=== PATIENT | female | born 1945 | race Caucasian/White ===

== ENCOUNTER → 2020-01-05 | Outpatient (CLI) | payer MEDICARE, OTHER ==
[~2020-01-05] MED LIST: Advil200 M1 PO
== END ==
LOC: LAB SHORT 08:47 → LAB EV 08:47
DX: R53.83 Other fatigue (principal); Z20.828 Contact with and (suspected) exposure to other viral communicable diseases
CPT/HCPCS: U0003

== ENCOUNTER → 2020-01-26 | Outpatient (CLI) | payer MEDICARE | LOC: LAB EV 11:26 → LAB SHORT 11:26 | DX: J06.9 Acute upper respiratory infection, unspecified (principal); Z20.828 Contact with and (suspected) exposure to other viral communicable diseases | CPT/HCPCS: U0003 ==

== ENCOUNTER → 2021-06-20 | Outpatient (CLI) | payer MEDICARE ==
[2021-06-20 11:53] LABS: Thyroid Stimulating Hormone 1.091 uIU/mL (0.360-4.800)
[2021-06-20 11:59] LABS: Troponin I <0.017 ng/mL (0.000-0.040)
== END | disposition home or self-care (01) ==
LOC: LAB SHORT 11:26
PROVIDERS: Physician Assistant Medical
DX: R53.83 Other fatigue (principal); R06.09 Other forms of dyspnea
CPT/HCPCS: 84443; 84484

== ENCOUNTER → 2022-02-28 | Outpatient (CLI) | payer MEDICARE ==
[~2022-02-28] MED LIST changes: +Aspir 8181 MG PO; +LISI5 PO; +METO25ER PO; +ROSU5 PO
== END | disposition home or self-care (01) ==
LOC: LAB 11:13 → LAB SHORT 11:13
DX: C44.519 Basal cell carcinoma of skin of other part of trunk (principal)
CPT/HCPCS: 88305

== ENCOUNTER → 2022-04-02 | Outpatient (CLI) | payer MEDICARE | END | disposition home or self-care (01) | LOC: PLD 12:29 → LAB SHORT 12:29 | DX: C44.519 Basal cell carcinoma of skin of other part of trunk (principal) | CPT/HCPCS: 88305 ==

== ENCOUNTER → 2022-07-03 | Outpatient (CLI) | payer MEDICARE | LOC: LAB SHORT 21:15 → LAB 21:15 | PROVIDERS: Family Medicine | DX: K52.9 Noninfective gastroenteritis and colitis, unspecified (principal) | CPT/HCPCS: 82653; 83993 ==

== ENCOUNTER → 2022-07-04 | Outpatient (CLI) | payer MEDICARE | LOC: LAB 05:05 → LAB SHORT 05:05 | DX: K52.9 Noninfective gastroenteritis and colitis, unspecified (principal) | CPT/HCPCS: 87015; 87045; 87046; 87205; 87899 ==

== ENCOUNTER 2022-11-02 05:49 | Emergency (ER) | payer MEDICARE ==
[~2022-11-02] VITALS: Ht 154.9 cm; Wt 43.1 kg
[2022-11-02] MEDS ORDERED: DILT120 PO (06:09)
[2022-11-02] MEDS ORDERED: PROBIOTIC (06:10)
[2022-11-02] MEDS ORDERED: GABA300 PO (06:10)
[2022-11-02 06:32] LABS: BASOPHILS ABSOLUTE AUTO 0.05 K/mm3 (0.00-0.23); BASOPHILS PERCENT AUTO 1 % (0-2); EOSINOPHILS PERCENT AUTO 1 % (0-6); Hematocrit 36.7 % (33.0-51.0); Hemoglobin 11.2 g/dL (11.5-16.0); IMMATURE GRAN ABSOLUTE AUTO 0.02 K/mm3 (0.00-0.10); IMMATURE GRAN PERCENT AUTO 0 % (0-1); LYMPHOCYTES ABSOLUTE AUTO 2.32 K/mm3 (0.84-5.20); LYMPHOCYTES PERCENT AUTO 24 % (21-46); MONOCYTES ABSOLUTE AUTO 0.45 K/mm3 (0.16-1.47); MONOCYTES PERCENT AUTO 5 % (4-13); Mean Corpuscular HGB 23.3 pg (26.0-34.0); Mean Corpuscular HGB Conc 30.5 g/dL (31.5-36.5); Mean Corpuscular Volume 76 fL (80-100); NEUTROPHILS PERCENT AUTO 70 % (41-73); Platelet Count 369 K/mm3 (150-400); RDW Coefficient Variation 14.1 % (11.7-14.2); Red Blood Cell Count 4.81 M/mm3 (3.80-5.20); White Blood Cell Count 9.84 K/mm3 (4.00-11.30)
[2022-11-02 06:44] LABS: Albumin, Blood 3.2 g/dL (3.4-5.0); Albumin/Globulin Ratio 0.9 (0.8-1.8); Bilirubin, Total 0.2 mg/dL (0.1-1.0); Bun/Creatinine Ratio 25.3 (12.0-20.0); Calcium, Blood 8.2 mg/dL (8.5-10.1); Creatinine, Blood 0.67 mg/dL (0.40-1.00); Globulin, Blood 3.5 g/dL (2.2-4.0); Potassium, Blood 3.9 mmol/L (3.5-5.5); Total Protein, Blood 6.7 g/dL (6.4-8.2)
[2022-11-02 07:42] VITALS: BP 146/79
== END 2022-11-02 07:57 | disposition home or self-care (01) ==
LOC: ER 05:49
PROVIDERS: Emergency Medicine
DX: I48.91 Unspecified atrial fibrillation (principal); Z88.5 Allergy status to narcotic agent; Z88.8 Allergy status to other drugs, medicaments and biological substances; Z79.82 Long term (current) use of aspirin; Z79.899 Other long term (current) drug therapy
CPT/HCPCS: 71045; 73080; 73610; 80053; 84484; 85025; 93005; 93010; 96361; 96374; 99284-25; A9270; J7030

== ENCOUNTER 2022-12-26 05:40 | Inpatient (IN) | payer MEDICARE ==
[~2022-12-26] VITALS: Ht 162.6 cm; Wt 31.2 kg
[~2022-12-26 05:40] MED LIST changes: +ALUM-MAG HYDRO360 M1 PO; +Acetaminophen650 M1 PO; +COMPAZINE10 MG PO; +DILT120 PO; +GABA300 PO; +MESALAMINE PO; +OMEP20ER PO; +ONDA4ODT MM; +PROBIOTIC; +Prednisone20 MG PO
[2022-12-26 06:21] LABS: Hematocrit 32.1 % (33.0-51.0); Hemoglobin 9.9 g/dL (11.5-16.0); Mean Corpuscular HGB 25.1 pg (26.0-34.0); Mean Corpuscular HGB Conc 30.8 g/dL (31.5-36.5); Mean Corpuscular Volume 81 fL (80-100); Platelet Count 296 K/mm3 (150-400); RDW Coefficient Variation 23.7 % (11.7-14.2); RDW Standard Deviation 69.3 fL (35.1-46.3); Red Blood Cell Count 3.95 M/mm3 (3.80-5.20)
[2022-12-26 06:44] LABS: BAND PERCENT MAN 11 % (0-8); BASOPHILS PERCENT MAN 0 % (0-2); EOSINOPHILS PERCENT MAN 0 % (0-6); LYMPHOCYTES ABSOLUTE MAN 0.68 K/mm3 (0.84-5.20); LYMPHOCYTES PERCENT MAN 10 % (21-46); MONOCYTES PERCENT MAN 0 % (4-13); NEUTROPHILS ABSOLUTE MAN 6.12 K/mm3 (1.96-9.15); SEG NEUTROPHILS PERCENT MAN 79 % (41-73); TOTAL CELLS COUNTED 100
[2022-12-26 06:46] LABS: Albumin, Blood 1.5 g/dL (3.4-5.0); Albumin/Globulin Ratio 0.4 (0.8-1.8); Bilirubin, Total 0.5 mg/dL (0.1-1.0); Bun/Creatinine Ratio 65.7 (12.0-20.0); Calcium, Blood 7.9 mg/dL (8.5-10.1); Creatinine, Blood 0.35 mg/dL (0.40-1.00); Globulin, Blood 3.7 g/dL (2.2-4.0); Magnesium, Blood 2.1 mg/dL (1.6-2.4); Potassium, Blood 4.7 mmol/L (3.5-5.5); Total Protein, Blood 5.2 g/dL (6.4-8.2)
[2022-12-26 08:41] LABS: Source, Urine Clean Catch
[2022-12-26 08:54] LABS: Appearance, Urine Clear (Clear); Bilirubin, Urine Neg (Neg); Blood, Urine Neg (Neg); Color, Urine Yellow (P-Yellow); Glucose Qualitative, Urine Neg (Neg); Ketones, Urine 2+ (Neg); Leukocyte Esterase, Urine Neg (Neg); Nitrite, Urine Neg (Neg); Protein, Urine Neg (Neg); Urobilinogen, Urine NORM (Normal)
[2022-12-26] MEDS ORDERED: ROSU5 PO (09:13)
[2022-12-26] MEDS ORDERED: BUDESONIDE EC3 M1 PO (09:14)
[2022-12-26] MEDS ORDERED: PROBIOTIC1 EA13 PO (09:14)
[2022-12-26] MEDS ORDERED: GABA300 PO (09:14)
[2022-12-26] MEDS ORDERED: Aspir 8181 MG PO (09:14)
[2022-12-26 10:00] VITALS: BP 112/62
[2022-12-26] MEDS ORDERED: PRED20 PO (10:18)
--- NOTE | 2022-12-26 11:15 | NUR ---
Call to Dr. Chong, updated on the pt's heart rate fluctuations, presently at sinus rhuthm 77 bpm. Pt is sitting up in bed, and has no complaints nor distress/discmfort at this time.
[2022-12-26 16:01] VITALS: BP 138/67
--- NOTE | 2022-12-26 16:48 | NUR ---
Pt assisted up to Bedside commode. Heart rate noted 130-141 bpm during the activity; per telecommunications technician it was not atrial fibrillation. Resolved to sinus rhythm 80 bpm following activity when back to bed. Voided urine and had liquid small red BM; sent for GI panel per orders. Pt is weak, requires at least one person to stand and transfer, but is able to stand and bear weight. Asking for chicken broth and is also drinking water, tolerating it well. Clinimix and iron infusions ongoing, separate IV sites.
--- NOTE | 2022-12-26 17:47 | NUR ---
pt is sitting up eating dinner; states that the beef stew is very good. Ferrous IV infusion completed. CBG 134 after start of Clinimix earlier this afternoon. IV sites remain WNL.
--- NOTE | 2022-12-26 18:47 | NUR ---
1 PERSON MODERATE ASSISTANCE UP TO bedside commode. Passed watery red stool and some urine. Unable to distinguish as they are both thin liquid. Continues to have tachycardia, asymptomatic, while up to toilet. States that she ate dinner but then threw it all up afterwards.
[2022-12-26 19:03] LABS: Adenovirus F 40/41 Not Detected (NOT DETECT); Astrovirus Not Detected (NOT DETECT); Campylobacter Sp Not Detected (NOT DETECT); Cryptosporidium Not Detected (NOT DETECT); Cyclospora Cayetanensis Not Detected (NOT DETECT); E. Coli O157 Not Detected (NOT DETECT); Entamoeba Histolytica Not Detected (NOT DETECT); Enteroaggregative E. coli-EAEC Not Detected (NOT DETECT); Enteropathogenic E. coli-EPEC Not Detected (NOT DETECT); Enterotoxigenic E. coli-ETEC Not Detected (NOT DETECT); Giardia Lamblia Not Detected (NOT DETECT); Norovirus GI/GII Not Detected (NOT DETECT); Plesiomonas Shigelloides Not Detected (NOT DETECT); Rotavirus A Not Detected (NOT DETECT); Salmonella Sp Not Detected (NOT DETECT); Sapovirus Not Detected (NOT DETECT); Shiga Toxin-prod E. coli-STEC Not Detected (NOT DETECT); Shigella/Enteroin E. coli-EIEC Not Detected (NOT DETECT); Vibrio Cholerae Not Detected (NOT DETECT); Vibrio Sp Not Detected (NOT DETECT); Yersinia Enterocolitica Not Detected (NOT DETECT)
[2022-12-26 19:53] VITALS: BP 137/77
[2022-12-27 00:07] VITALS: BP 130/70
[2022-12-27 04:12] VITALS: BP 149/77
[2022-12-27 04:47] LABS: Anion Gap 5 mmol/L (6-16); Blood Urea Nitrogen 21 mg/dL (8-24); Bun/Creatinine Ratio 68.4 (12.0-20.0); CO2, Blood 27 mmol/L (21-32); Calcium, Blood 7.4 mg/dL (8.5-10.1); Chloride, Blood 112 mmol/L (98-108); Creatinine, Blood 0.31 mg/dL (0.40-1.00); Glomerular Filtration Rate 107 (60-); Glucose, Blood 190 mg/dL (70-99); Magnesium, Blood 1.8 mg/dL (1.6-2.4); Phosphorus, Blood 1.8 mg/dL (2.5-4.9); Potassium, Blood 3.1 mmol/L (3.5-5.5); Sodium, Blood 144 mmol/L (136-145); Triglycerides 96 mg/dL (30-160)
--- NOTE | 2022-12-27 05:47 | NUR ---
SHIFT SUMMARY NO ACUTE CHANGES THIS SHIFT. VSS. AXO, PT WEAK. IN SR. ON RA. MULTIPLE LIQUID BM'S THIS SHIFT; RUST COLORED AT TIMES. CLINIMIX AND MAINTENANCE FLUIDS INFUSING PER EMAR. CBG STABLE. OTHERWISE, PT RESTING THIS SHIFT. USING CALL LIGHT APPROPRIATELY. BED ALARM ON. MINIMAL ASSIST TO BSC. IGNITION ASSESMENT COMPLETED. EDUCATION PROVIDED.
[2022-12-27 07:42] VITALS: BP 140/67
[2022-12-27 15:34] LABS: Albumin, Blood 1.2 g/dL (3.4-5.0); Anion Gap 5 mmol/L (6-16); Blood Urea Nitrogen 16 mg/dL (8-24); CO2, Blood 26 mmol/L (21-32); Calcium, Blood 7.2 mg/dL (8.5-10.1); Chloride, Blood 105 mmol/L (98-108); Creatinine, Blood 0.28 mg/dL (0.40-1.00); Glomerular Filtration Rate 110 (60-); Glucose, Blood 174 mg/dL (70-99); Potassium, Blood 3.8 mmol/L (3.5-5.5); Sodium, Blood 136 mmol/L (136-145)
[2022-12-27 16:36] VITALS: BP 131/71
--- NOTE | 2022-12-27 18:11 | NUR ---
Pt says that she has not had a very good afternoon. She ate very little of her full liquid dinner. States that she has a headache, gas on her stomach, and is just tired of trying right now. States that she just needs some time to stop trying for now. She does not elaborate further than that. Wants just to lie down in the room with her eyes closed, and lights off.
--- NOTE | 2022-12-27 18:15 | NUR ---
SUMMARY Pt said this morning that she had been awake "basically since 3 am". Overall appeared exhausted and extremely poor appetite. Had nausea and small amount of dry heaves after breakfast, relieved with zofran. Ongoing catalino colored liquid diarrhea throughout the day, small amounts mixed with urine in BSC. Sat up in chair for breakfast, but in bed the rest of the day except for when she got up to use the BSC. Able to stand, use the walker and transfer to BSC with verbal cues and just very minimal assistance. STates that she "can't do it" but with encouragement she has been able to. Heart rate controlled, sinus rhythm, with activity and at rest. Micah was here several times during the day.
[2022-12-27 19:38] VITALS: BP 155/68
[2022-12-27 22:49] VITALS: BP 143/79
[2022-12-28] VITALS (8 sets, daily range): BP systolic 125–163; BP diastolic 65–79
[2022-12-28 04:58] LABS: Hematocrit 24.1 % (33.0-51.0); Hemoglobin 7.8 g/dL (11.5-16.0); Mean Corpuscular HGB 25.2 pg (26.0-34.0); Mean Corpuscular HGB Conc 32.4 g/dL (31.5-36.5); Mean Corpuscular Volume 78 fL (80-100); Mean Platelet Volume 9.8 fL (9.1-12.4); Platelet Count 165 K/mm3 (150-400); RDW Coefficient Variation 22.6 % (11.7-14.2); White Blood Cell Count 4.43 K/mm3 (4.00-11.30)
--- NOTE | 2022-12-28 05:12 | NUR ---
SHIFT SUMMARY NO ACUTE CHANGES THIS SHIFT. AXO, PT STATING NEWFOUND DEPRESSION WITH DENIAL OF SI. PT IS A RISK FOR FAILURE TO THRIVE, EDUCATION PROVIDED WELL COMFORTING WORDS. PT CONTINUES WITH RUST COLORED DIARRHEA. CLINIMIX AND FLUIDS INFUSING PER EMAR. PT UP TO BSC MULTIPLE TIMES THIS SHIFT W/OUT INCIDENT. OTHERWISE, PT RESTING QUIETELY.
[2022-12-28 05:18] LABS: Bun/Creatinine Ratio 44.4 (12.0-20.0); Calcium, Blood 7.3 mg/dL (8.5-10.1); Creatinine, Blood 0.25 mg/dL (0.40-1.00); Magnesium, Blood 1.9 mg/dL (1.6-2.4); Phosphorus, Blood 1.9 mg/dL (2.5-4.9); Potassium, Blood 3.3 mmol/L (3.5-5.5)
[2022-12-28 06:18] LABS: BAND PERCENT MAN 3 % (0-8); BASOPHILS PERCENT MAN 0 % (0-2); EOSINOPHILS PERCENT MAN 0 % (0-6); LYMPHOCYTES ABSOLUTE MAN 0.39 K/mm3 (0.84-5.20); LYMPHOCYTES PERCENT MAN 9 % (21-46); MONOCYTES ABSOLUTE MAN 0.17 K/mm3 (0.16-1.47); MONOCYTES PERCENT MAN 4 % (4-13); NEUTROPHILS ABSOLUTE MAN 3.85 K/mm3 (1.96-9.15); SEG NEUTROPHILS PERCENT MAN 84 % (41-73); TOTAL CELLS COUNTED 100
--- NOTE | 2022-12-28 17:35 | NUR ---
AT 1600 PT HAD 300ML OF RED LIQUID STOOL MIXED WITH URINE. STOOL COLOR APPEARS LESS JOE LIKE IT DID THIS MORNING AND MUCH MORE RED. STOOL IS ALSO VERY SMELLY. PT CONTINUES TO GET TO THE COMMODE WITH 1 ASSIST, HAS DENIED DIZZINESS, VSS. DR. SCHWARZ MADE AWARE OF THIS. SEE NEW ORDER TO TRANSFUSE 1 UNIT OF PRBC'S.
--- NOTE | 2022-12-28 17:39 | NUR ---
SUMMARY: PT IS A/O, VSS, TELE STABLE-SR, ST WITH ACTIVITY, USING CALL LIGHT, AT BEDSIDE. PT UP TO COMMODE WITH 1 ASSIST AND FWW, WEAKNESS NOTED. SHE CONTINUES TO HAVE RED LIQ STOOLS, VOIDING WELL. POWER PICC PLACED TODAY, TPN NOW INFUSING. POSTASSIUM REPLACED. MAGNESIUM STABLE. 1 UNIT PRBC'S INFUSING NOW. PT SEEMS TO BE IN BETTER SPIRITS, EVEN WITH SHOWING SOME EXHAUSTION SHE STILL AGREED TO WORK WITH THERAPY. PT TOLERATING SMALL AMTS OF FULL LIQUIDS. NO ACUTE SAFETY CONCERNS.
[2022-12-29] VITALS: BP 136/69
[2022-12-29 02:30] LABS: Hematocrit 28.3 % (33.0-51.0); Hemoglobin 9.5 g/dL (11.5-16.0); Mean Corpuscular HGB 25.4 pg (26.0-34.0); Mean Corpuscular HGB Conc 33.6 g/dL (31.5-36.5); Mean Corpuscular Volume 76 fL (80-100); Mean Platelet Volume 10.5 fL (9.1-12.4); Platelet Count 146 K/mm3 (150-400); RDW Coefficient Variation 21.5 % (11.7-14.2); RDW Standard Deviation 58.5 fL (35.1-46.3); Red Blood Cell Count 3.74 M/mm3 (3.80-5.20); White Blood Cell Count 4.68 K/mm3 (4.00-11.30)
[2022-12-29 02:42] LABS: Albumin, Blood 1.3 g/dL (3.4-5.0); Albumin/Globulin Ratio 0.4 (0.8-1.8); Bilirubin, Total 0.6 mg/dL (0.1-1.0); Bun/Creatinine Ratio 48.7 (12.0-20.0); Calcium, Blood 7.4 mg/dL (8.5-10.1); Creatinine, Blood 0.23 mg/dL (0.40-1.00); Globulin, Blood 2.9 g/dL (2.2-4.0); Magnesium, Blood 1.7 mg/dL (1.6-2.4); Phosphorus, Blood 1.6 mg/dL (2.5-4.9); Potassium, Blood 3.4 mmol/L (3.5-5.5); Total Protein, Blood 4.2 g/dL (6.4-8.2)
[2022-12-29 03:00] LABS: BAND PERCENT MAN 18 % (0-8); BASOPHILS PERCENT MAN 0 % (0-2); EOSINOPHILS PERCENT MAN 0 % (0-6); LYMPHOCYTES ABSOLUTE MAN 0.18 K/mm3 (0.84-5.20); LYMPHOCYTES PERCENT MAN 4 % (21-46); MONOCYTES ABSOLUTE MAN 0.09 K/mm3 (0.16-1.47); MONOCYTES PERCENT MAN 2 % (4-13); NEUTROPHILS ABSOLUTE MAN 4.39 K/mm3 (1.96-9.15); SEG NEUTROPHILS PERCENT MAN 76 % (41-73); TOTAL CELLS COUNTED 100
[2022-12-29 04:00] VITALS: BP 135/78
--- NOTE | 2022-12-29 06:19 | NUR ---
SHIFT SUMMARY PT A&OX4. APPEARS PALE, FATIGUE AND WEAK, PT REPORTS FEELING "WEAK AND HAVING NO ENERGY." PT RECEIVING 1 UNIT OF PRBC'S AT SHIFT CHANGE, TRANSFUSION COMPLETE DURING THIS SHIFT. VSS THROUGHOUT SHIFT; BP IN 130'S, SR WITH HR IN 90'S, AFEBRILE, AND REMAINS ON RA W/SPO2 >96%. PT DENIES CP OR PRESSURE. DENIES N/V THIS SHIFT. REPORTS DIZZY AND SOB W/MINIMAL MOVEMENT. PT USING BSC WITH ASSISTANCE. TOLERATES FAIRLY, ALTHOUGH TIRED AFTER AND PT UNABLE TO LIFE HER OWN LEGS BACK INTO BED. PT IS VERY WEAK. PT VOIDING FREQUENTLY. PT STILL CONTINUES TO HAVE VERY LOOSE, LIQUID RED/BLOODY STOOLS. DIFFICULT TO DECIPHER URINE, STOOL VS BLOOD OUTPUT D/T MIXED OUTPUT. AM HGB 9.5. PT REPOSITIONS SEMI-INDEPENDENTLY, BUT NEEDING ASSISTANCE AT TIMES D/T DECREASED STRENGTH. TPN INFUSING PER EMAR. CALL LIGHT IN REACH. OF NOTE, PT AFFECT FLAT AND SEMI-WITHDRAWN. WILL UPDATE ONCOMING RN
[2022-12-29 07:59] VITALS: BP 116/82
--- NOTE | 2022-12-29 10:57 | NUR ---
AM NOTES: PT HAS FREQUENT LOOSE BLOODY/RED STOOLS PT HAS GONE 4 TIMES ALREADY THIS MORNING ONLY SMALL AMOUNTS AT EACH TIME. PT ABDOMEN IS TENDER TO TOUCH. PT C/O OF FEELING VERY WEAK BUT IS ABLE TO GET UP SBA TO BEDSIDE COMMODE TOLERATED. VITALS HRR ST 100'S, SBP 116, SATS ABOVE 95% ON RA, AFEBRILE. CPN RUNNING AT 50MLS/HR VIA PICC LINE ON ISAI, ABO AND IRON INFUSED THIS MORNING, KPHOS 15MMOL CURRENTLY INFUSING ON LAC. PT REMAINS ON FULL LIQUID DIET TOLERATING WELL. AT THE BEDSIDE THIS MORNING ASSISTING WITH PT'S BREAKFAST. PT ABLE TO WORK WITH PHYSICAL THERAPIST THIS MORNING. DR SCHWARZ IN THE ROOM OF THIS TIME. PT TO TRANSITION TO MEDICAL STATUS WITH NO TELE. WILL CONTINUE TO MONITOR
[2022-12-29 11:17] VITALS: BP 148/75
--- NOTE | 2022-12-29 14:29 | NUR ---
ASSUMPTION OF CARE NOTE THIS NURSE ASSUMED CARE AT APPROX. 1415 WHEN PT ARRIVED BACK FROM CT SCAN. SHE IS ALERT AND ORIENTED X 4, SHE WAS A 1 PERSON SBA TO BEDSIDE COMMODE AND APPEARED WEAK. TPN AND KPHOS RESTARTED PER EMAR ORDERS. WARM BLANKET PROVIDED AND PT IS NOW BACK IN BED. CALL LIGHT IS W/IN REACH.
[2022-12-29 15:46] VITALS: BP 147/83
--- NOTE | 2022-12-29 17:27 | NUR ---
SHIFT SUMMARY PT ALERT AND ORIENTED X 4, SHE APPEARS WEAK AND IS A 1 PERSON ASSIST TO BEDSIDE COMMODE, VSS, SPO2 MAINTAINED >95% VIA RA, SHE DENIED FEELING SOB, SHE DENIED FEELINGS OF CHEST PAIN/PRESSURE. PAIN REPORTED IN ABD BUT PT REPORTED ABD PAIN RELIEF AFTER VOIDING. GI OUTPUT IS RED IN COLOR, PT HAS HX OF ULCERATIVE COLLITIS. CPN INFUSING IN PICC LINE PER EMAR ORDERS. MEPILEX OVER COCCYX IS IN PLACE AND IS D/C/I. REPORT GIVEN TO ANGEL POE ON MEDICAL FLOOR AND PT LEFT PCU AT APPROX. 1712 TO MED FLOOR ROOM 358, HER WAS AT BEDSIDE AND ALL OF HER PERSONAL BELONINGS WENT WITH PT.
--- NOTE | 2022-12-29 17:35 | NUR ---
PATIENT ARRIVED TO MEDICAL FLOOR AND THIS RN ASSUMED CARE AT 1715. ACCOMPANIED BY , GARRETT. ROOM TRAY DELIVERED AND EATING FULL-LIQUID DIET. TPN RUNNING.
[2022-12-29 20:08] VITALS: BP 124/76
[2022-12-30 02:52] VITALS: BP 147/73
[2022-12-30 07:10] LABS: Hematocrit 28.6 % (33.0-51.0); Hemoglobin 9.6 g/dL (11.5-16.0); Mean Corpuscular HGB 25.9 pg (26.0-34.0); Mean Corpuscular HGB Conc 33.6 g/dL (31.5-36.5); Mean Corpuscular Volume 77 fL (80-100); Mean Platelet Volume 10.4 fL (9.1-12.4); Platelet Count 149 K/mm3 (150-400); RDW Coefficient Variation 21.7 % (11.7-14.2); RDW Standard Deviation 59.6 fL (35.1-46.3); Red Blood Cell Count 3.71 M/mm3 (3.80-5.20); White Blood Cell Count 5.74 K/mm3 (4.00-11.30)
--- NOTE | 2022-12-30 07:21 | NUR ---
SHFT URIZY, PT RESTING IN BED, PT HAVING TO USE BSC FREQUENTLY. PT SLEEPING INTERMITANTLY. CALL LIGHT IN REACH, FIRE SAFETY REVIEWED.
[2022-12-30 07:24] LABS: Albumin, Blood 1.3 g/dL (3.4-5.0); Albumin/Globulin Ratio 0.4 (0.8-1.8); Bilirubin, Total 0.3 mg/dL (0.1-1.0); Bun/Creatinine Ratio 57.9 (12.0-20.0); C-REACTIVE PROTEIN, EXT RANGE 6.08 mg/dL (0.000-0.300); Calcium, Blood 7.4 mg/dL (8.5-10.1); Creatinine, Blood 0.24 mg/dL (0.40-1.00); Magnesium, Blood 1.8 mg/dL (1.6-2.4); Phosphorus, Blood 1.7 mg/dL (2.5-4.9); Potassium, Blood 4.2 mmol/L (3.5-5.5); Total Protein, Blood 4.3 g/dL (6.4-8.2)
[2022-12-30 07:44] LABS: BAND PERCENT MAN 29 % (0-8); BASOPHILS ABSOLUTE MAN 0.05 K/mm3 (0.00-0.23); BASOPHILS PERCENT MAN 1 % (0-2); EOSINOPHILS PERCENT MAN 0 % (0-6); LYMPHOCYTES ABSOLUTE MAN 0.51 K/mm3 (0.84-5.20); LYMPHOCYTES PERCENT MAN 9 % (21-46); MONOCYTES ABSOLUTE MAN 0.22 K/mm3 (0.16-1.47); MONOCYTES PERCENT MAN 4 % (4-13); NEUTROPHILS ABSOLUTE MAN 4.93 K/mm3 (1.96-9.15); SEG NEUTROPHILS PERCENT MAN 57 % (41-73); TOTAL CELLS COUNTED 100
[2022-12-30 07:55] VITALS: BP 133/68
[2022-12-30 15:52] VITALS: BP 127/69
--- NOTE | 2022-12-30 16:21 | NUR ---
SHIFT SUMMARY: NO ACUTE EVENTS, IS VERY TIRED. TPN INFUSING THROUGH ISAI PICC LINE WITHOUT INCIDENT. BLADDER SCAN AND STRAIGHT CATH PERFORMED X 2 AT TIME OF THIS NOTE. TEDS HOSE ON, 2+ EDEMA BILATERAL FEET AND ANKLES. TOLERATING FULL LIQ DIET, BUT APPETITE IS VERY POOR. HAVING FREQUENT BLOODY BM'S, BUT BLOOD IS LESS FREQUENT. SPOUSE GARRETT VISITED THIS MORNING.
[2022-12-30 19:15] VITALS: BP 113/65
[2022-12-31 02:05] VITALS: BP 150/80
[2022-12-31 03:48] VITALS: BP 145/71
--- NOTE | 2022-12-31 04:31 | NUR ---
SHIFT SUMMARY PT IS ALERT AND ORIENTED X4. BECAME TEARFUL AND REPORTING CHEST PAIN. DR. JACOBO NOTIFIED. EKG ORDERED. NOTHING SIGNIFICANT. PT HAS INCREASED SECRETIONS WHEN SWALLOWING MEDICAITONS SHE ALSO REPORTS PAIN AFTER SWALLOWING. BLOOD STREAKED LOOSE STOOL. ONE PERSON ASSIST TO THE BEDSIDE COMMODE. BED IS IN THE LOWEST POSITION WITH CALL LIGHT IN REACH. PT DENIES HAVING ANY IGNITION SOURCES ON HER. EDUCATION PROVIDED ON THE RISKS OF HAVING SOURCES AROUND OXYGEN. PT VERBALIZES UNDERSTANDING.
[2022-12-31 07:37] VITALS: BP 129/68
--- NOTE | 2022-12-31 08:00 | NUR ---
PT PLEASANT WEAK, CACHECTIC. A/O X3. DENIES PAIN AT THIS TIME. H/R REG, NO MURMUR NOTED. EDEMA +1 BLE. ON PILLOWS. NO TELE. LUNGS CLEAR, RESP EASY, UNLABORED. ON R/A. BT X4 LAST BM TODAY. LOOSE SOME BLOOD. DX OF ULCERATIVE COLITIS. VOIDS BSC. BUT VERY LITTLE. BLADDER SCAN AND IF >400 CC, TO STRAIGHT CATH PER ORDERS. ON TPN THRU PICC LINE. ISAI. 1 ASST TO BSC. BED IN LOW POSITION, CALL LITE IN REACH, CALLS APPROP
[2022-12-31 08:06] LABS: Hematocrit 27.2 % (33.0-51.0); Mean Corpuscular HGB 25.7 pg (26.0-34.0); Mean Corpuscular HGB Conc 33.1 g/dL (31.5-36.5); Mean Corpuscular Volume 78 fL (80-100); Mean Platelet Volume 10.8 fL (9.1-12.4); Platelet Count 149 K/mm3 (150-400); RDW Coefficient Variation 22.2 % (11.7-14.2); RDW Standard Deviation 60.2 fL (35.1-46.3); White Blood Cell Count 4.91 K/mm3 (4.00-11.30)
[2022-12-31 08:29] LABS: BAND PERCENT MAN 18 % (0-8); BASOPHILS PERCENT MAN 0 % (0-2); EOSINOPHILS PERCENT MAN 0 % (0-6); LYMPHOCYTES ABSOLUTE MAN 0.29 K/mm3 (0.84-5.20); LYMPHOCYTES PERCENT MAN 6 % (21-46); MONOCYTES ABSOLUTE MAN 0.09 K/mm3 (0.16-1.47); MONOCYTES PERCENT MAN 2 % (4-13); MYELOCYTE ABSOLUTE MAN 0.04 K/mm3 (0.00-0.00); MYELOCYTE PERCENT MAN 1 % (0-0); NEUTROPHILS ABSOLUTE MAN 4.46 K/mm3 (1.96-9.15); SEG NEUTROPHILS PERCENT MAN 73 % (41-73); TOTAL CELLS COUNTED 100
[2022-12-31 08:30] LABS: Albumin, Blood 1.2 g/dL (3.4-5.0); Albumin/Globulin Ratio 0.4 (0.8-1.8); Bilirubin, Total 0.3 mg/dL (0.1-1.0); Bun/Creatinine Ratio 55.6 (12.0-20.0); Calcium, Blood 7.4 mg/dL (8.5-10.1); Creatinine, Blood 0.27 mg/dL (0.40-1.00); Globulin, Blood 2.9 g/dL (2.2-4.0); Phosphorus, Blood 1.8 mg/dL (2.5-4.9); Potassium, Blood 4.3 mmol/L (3.5-5.5); Total Protein, Blood 4.1 g/dL (6.4-8.2)
--- NOTE | 2022-12-31 12:01 | NUR ---
CAROLYN FROM [facility] CALLED, STATES DONT GIVE ANTIVO IF ON ANTIFUNGALS OR ABX FOR 1-2 WEEKS UNLESS HAVE SPECIAL APPROVAL FROM DR. NEED TO CALL DR KACIE HARRISON.. [phone]. CALLED KENDRA ESPINOSA RN STATES HE IN PROCEDURES. WILL ASK AND HAVE SOMEONE CALL ME WITH [facility].
--- NOTE | 2022-12-31 13:06 | NUR ---
KENDRA FROM [place], DR KACIE JACKSON OFFICE, CALLED. OKAY TO GIVE MED WITH THE ANTIBIOTICS AND METRONIDAZOLE.
[2022-12-31 15:19] VITALS: BP 128/67
--- NOTE | 2022-12-31 18:28 | NUR ---
PT C/O THROAT AND NECK PAIN. CALLED DR TAMAYO. ORDERS FOR MAGIC MOUTHWASH.
[2022-12-31 19:21] VITALS: BP 112/75
--- NOTE | 2022-12-31 19:48 | NUR ---
PT QUITE PLEASANT TODAY. NEW MED FOR COLITIS ORDERED FOR 8PM TONITE. UPDATED DANNI RN PER CAROLYN AT [facility] TO FLUSH WITH 30 CC NS AFTER INFUSION. PT C/O SORE THROAT TO NECK. OBTAINED ORDERS FOR MAGIC MOUTHWASH, NOT HERE PRIOR TO SHIFT CHANGE. DANNI POE TO GIVE. HUSB IN ROOM THIS AFT. NO OTHER CONCERNS NOTED. BED IN LOW POSITION CALL LITE IN REACH, CALLS APPROP
[2023-01-01 04:55] VITALS: BP 112/60
[2023-01-01 05:04] LABS: Hematocrit 25.2 % (33.0-51.0); Hemoglobin 8.2 g/dL (11.5-16.0); Mean Corpuscular HGB 25.6 pg (26.0-34.0); Mean Corpuscular HGB Conc 32.5 g/dL (31.5-36.5); Mean Corpuscular Volume 79 fL (80-100); Mean Platelet Volume 10.9 fL (9.1-12.4); Platelet Count 151 K/mm3 (150-400); RDW Coefficient Variation 22.1 % (11.7-14.2); RDW Standard Deviation 62.4 fL (35.1-46.3); White Blood Cell Count 4.08 K/mm3 (4.00-11.30)
[2023-01-01 05:29] LABS: Magnesium, Blood 1.8 mg/dL (1.6-2.4)
[2023-01-01 05:47] LABS: Alanine Aminotransfer (ALT/SGP 47 U/L (12-78); Albumin, Blood 1.1 g/dL (3.4-5.0); Albumin/Globulin Ratio 0.4 (0.8-1.8); Alk Phos 87 U/L (50-136); Anion Gap 4 mmol/L (6-16); Aspartate Aminotrans (AST/SGOT 22 U/L (12-37); Bilirubin, Direct <0.1 mg/dL (0.0-0.3); Bilirubin, Indirect Unable to Calculate mg/dL (0.1-0.7); Bilirubin, Total 0.2 mg/dL (0.1-1.0); Blood Urea Nitrogen 15 mg/dL (8-24); CO2, Blood 29 mmol/L (21-32); Calcium, Blood 7.2 mg/dL (8.5-10.1); Chloride, Blood 102 mmol/L (98-108); Creatinine, Blood 0.25 mg/dL (0.40-1.00); Globulin, Blood 2.8 g/dL (2.2-4.0); Glomerular Filtration Rate 113 (60-); Glucose, Blood 180 mg/dL (70-99); Phosphorus, Blood 2.3 mg/dL (2.5-4.9); Potassium, Blood 4.3 mmol/L (3.5-5.5); Sodium, Blood 135 mmol/L (136-145); Total Protein, Blood 3.9 g/dL (6.4-8.2)
[2023-01-01 05:49] LABS: BAND PERCENT MAN 33 % (0-8); BASOPHILS PERCENT MAN 0 % (0-2); EOSINOPHILS PERCENT MAN 0 % (0-6); LYMPHOCYTES ABSOLUTE MAN 0.24 K/mm3 (0.84-5.20); LYMPHOCYTES PERCENT MAN 6 % (21-46); METAMYELOCYTE ABSOLUTE MAN 0.04 K/mm3 (0.00-0.00); METAMYELOCYTE PERCENT MAN 1 % (0-0); MONOCYTES ABSOLUTE MAN 0.08 K/mm3 (0.16-1.47); MONOCYTES PERCENT MAN 2 % (4-13); NEUTROPHILS ABSOLUTE MAN 3.71 K/mm3 (1.96-9.15); SEG NEUTROPHILS PERCENT MAN 58 % (41-73); TOTAL CELLS COUNTED 100
[2023-01-01 07:27] VITALS: BP 130/66
--- NOTE | 2023-01-01 07:59 | NUR ---
Shift Summary Pt mouth and throat are very sore, magic mouthwash was D/C by day doctor before I could administer. Pt refused PO medication last night fearing another painful episode like the last time she swallowed. Pt rcvd new IV drug Entyvio last night, no adverse reactions. She is running TPN at 50. No c/o pain or nausea. She is a 1 assist to [facility] and does a pivot transfer. Pt had bloody diahrrea 4-6 times last night, Hgb this AM is 8.2 down from 9.0. Pt states she does get light headed when she stands up. Pt AOX4 and cooperative.
--- NOTE | 2023-01-01 08:00 | NUR ---
PT PLEASANT COOP A/O. QUITE QUIET AND WEAK. IS ON CPN. THROUGH PICC LINE RT UPPER ARM. C/O PAIN IN THROAT TO NECK. DISCUSSED WITH WE REINSTATED THE MAGIC MOUTHWASH. PT STATES DOES HELP. H/R REG, NO MURMUR NOTED. NO TELE. +1 EDEMA NOTED BLE, ON PILLOWS. LUNGS CLEAR, RESP EASY, UNLABORED ON RA. BT HYPO. LAST BM THIS AM. STILL LIGHTLY BLOODY STOOLS: COLITIS. H/H REVIEWED WITH DR. KOFI BROWN CATH. YELLOW FLUID DRAIINING. 1 MIN ASST. BED IN LOW POSITION, CALL LITE IN REACH, CALLS APPROP
--- NOTE | 2023-01-01 08:35 | NUR ---
SPOKE TO DR TAMAYO, NO REASON WHY MAGIC MOUTHWASH CANCELLED. RESTARTED.
[2023-01-01 15:44] VITALS: BP 127/74
--- NOTE | 2023-01-01 18:16 | NUR ---
PT PLEASANT TODAY. STATES MAGIC MOUTHWASH HELPED SOME. ABLE TO EAT 1/4 OF GRILLED CHEESE SANDWICH THIS NOON PLUS TRYING TO EAT SOME DINNER FROM HOME TODAY. FEELS MAYBE BLOODY STOOLS SLOWED A LITTLE TODAY. NO NEW CONCERNS NOTED. BEDIN LOW POSITION, CALL LITE IN REACH, CALLSD APPRP
[2023-01-01 20:12] VITALS: BP 136/60
[2023-01-02 04:19] VITALS: BP 146/68
[2023-01-02 05:19] LABS: Bun/Creatinine Ratio 65.2 (12.0-20.0); Calcium, Blood 7.1 mg/dL (8.5-10.1); Creatinine, Blood 0.28 mg/dL (0.40-1.00); Magnesium, Blood 1.9 mg/dL (1.6-2.4); Potassium, Blood 4.2 mmol/L (3.5-5.5)
[2023-01-02 07:25] VITALS: BP 147/73
--- NOTE | 2023-01-02 07:28 | NUR ---
Shift Summary Loose stools were less bloody than yesterday but still contain blood. She is running TPN at 50. Her Hgb on her AM lab is 6.9. She is AOx4, weak, 1 assist to BSC. She took her PO meds last night, her mouth is feeling better than the night before.
[2023-01-02 11:43] LABS: Hematocrit 29.3 % (33.0-51.0); Hemoglobin 9.3 g/dL (11.5-16.0); Mean Corpuscular HGB 25.6 pg (26.0-34.0); Mean Corpuscular HGB Conc 31.7 g/dL (31.5-36.5); Mean Corpuscular Volume 81 fL (80-100); Mean Platelet Volume 9.9 fL (9.1-12.4); Platelet Count 164 K/mm3 (150-400); RDW Coefficient Variation 22.3 % (11.7-14.2); RDW Standard Deviation 65.2 fL (35.1-46.3); Red Blood Cell Count 3.63 M/mm3 (3.80-5.20); White Blood Cell Count 5.22 K/mm3 (4.00-11.30)
[2023-01-02 12:33] LABS: BAND PERCENT MAN 22 % (0-8); BASOPHILS PERCENT MAN 0 % (0-2); EOSINOPHILS ABSOLUTE MAN 0.05 K/mm3 (0.00-0.68); EOSINOPHILS PERCENT MAN 1 % (0-6); LYMPHOCYTES ABSOLUTE MAN 0.05 K/mm3 (0.84-5.20); LYMPHOCYTES PERCENT MAN 1 % (21-46); METAMYELOCYTE ABSOLUTE MAN 0.05 K/mm3 (0.00-0.00); METAMYELOCYTE PERCENT MAN 1 % (0-0); MONOCYTES ABSOLUTE MAN 0.31 K/mm3 (0.16-1.47); MONOCYTES PERCENT MAN 6 % (4-13); NEUTROPHILS ABSOLUTE MAN 4.75 K/mm3 (1.96-9.15); SEG NEUTROPHILS PERCENT MAN 69 % (41-73); TOTAL CELLS COUNTED 100
--- NOTE | 2023-01-02 12:42 | NUR ---
Attempted to meet with pt, but she had just finished a shower and wants to have a little nap. She was very pleasant, will return later today.
[2023-01-02 15:41] VITALS: BP 124/65
--- NOTE | 2023-01-02 18:04 | NUR ---
SHIFT SUMMARY: NO ACUTE EVENTS. 1+ PEDAL EDEMA NOTED. DRESSING AND CAP CHANGED ON ISAI PICC, FLUSHES AND DRAWS WELL. BROWN DRAINING ADEQUATE YELLOW URINE. DIET ADVANCED TO REGULAR, BUT APPETITE REMAINS VERY POOR AND MOUTH STILL PAINFUL. TPN INFUSING AT 50 ML/HR. WAS ABLE TO TAKE SHOWER WITH ASSISTANCE, WAS EXHAUSTED AFTERWARD. PT/OT WORKED WITH PATIENT. SPOUSE VISITED A FEW TIMES TODAY.
[2023-01-02 20:05] VITALS: BP 137/67
[2023-01-03 02:21] VITALS: BP 153/70
--- NOTE | 2023-01-03 04:47 | NUR ---
SHIFT SUMMARY NO ACUTE CHANGES TO PT CONDITION. PT REFUSED MAGIC MOUTHWASH AND REMERON LAST EVENING. PT LYING QUIETLY IN BED MUCH OF THE NIGHT. CALL LIGHT IS WITHIN HER REACH AND PT HAS UNDERSTANDING OF ITS USE.
[2023-01-03 07:30] VITALS: BP 145/74
[2023-01-03 09:26] LABS: Hematocrit 27.8 % (33.0-51.0); Mean Corpuscular HGB 25.9 pg (26.0-34.0); Mean Corpuscular HGB Conc 32.4 g/dL (31.5-36.5); Mean Corpuscular Volume 80 fL (80-100); Mean Platelet Volume 10.4 fL (9.1-12.4); Platelet Count 167 K/mm3 (150-400); RDW Coefficient Variation 22.7 % (11.7-14.2); RDW Standard Deviation 64.9 fL (35.1-46.3); Red Blood Cell Count 3.48 M/mm3 (3.80-5.20)
[2023-01-03 09:40] LABS: Anion Gap 5 mmol/L (6-16); Blood Urea Nitrogen 19 mg/dL (8-24); Bun/Creatinine Ratio 69.3 (12.0-20.0); CO2, Blood 29 mmol/L (21-32); Calcium, Blood 7.4 mg/dL (8.5-10.1); Chloride, Blood 100 mmol/L (98-108); Creatinine, Blood 0.27 mg/dL (0.40-1.00); Glomerular Filtration Rate 111 (60-); Glucose, Blood 132 mg/dL (70-99); Phosphorus, Blood 1.9 mg/dL (2.5-4.9); Potassium, Blood 4.3 mmol/L (3.5-5.5); Sodium, Blood 134 mmol/L (136-145); Triglycerides 106 mg/dL (30-160)
[2023-01-03 09:57] LABS: BAND PERCENT MAN 22 % (0-8); BASOPHILS ABSOLUTE MAN 0.04 K/mm3 (0.00-0.23); BASOPHILS PERCENT MAN 1 % (0-2); EOSINOPHILS PERCENT MAN 0 % (0-6); LYMPHOCYTES % ATYPICAL MANUAL 4 % (0-0); LYMPHOCYTES ABSOLUTE MAN 0.57 K/mm3 (0.84-5.20); LYMPHOCYTES PERCENT MAN 8 % (21-46); MONOCYTES ABSOLUTE MAN 0.09 K/mm3 (0.16-1.47); MONOCYTES PERCENT MAN 2 % (4-13); NEUTROPHILS ABSOLUTE MAN 4.08 K/mm3 (1.96-9.15); SEG NEUTROPHILS PERCENT MAN 63 % (41-73); TOTAL CELLS COUNTED 100
--- NOTE | 2023-01-03 13:24 | NUR ---
Megace increased to 400mg daily. First dose now, then daily at [address] Conway.
[2023-01-03 15:06] VITALS: BP 128/61
--- NOTE | 2023-01-03 17:00 | NUR ---
SUMMARY PATIENT CONTINUES TO BE WEAK. PATIENT NOT INTERESTED IN WORKING WITH THERAPY TODAY. PATIENT ONLY EATING BITES OF FOOD. CPN INFUSION CONTINUED. PATIENT CONTINUES TO HAVE BOUTS OF LIQUID STOOL WITH FLECKS OF BLOOD IN IT. PATIENT STARTED ON APPETITE STIMULANT TO HELP IMPROVE APPETITE. PATIENT HAD TELEHEALTH APPOINTMENT WITH GI SPECIALIST TODAY. PATIENT TO FOLLOW UP WITH SPECIALIST IN 2 WEEKS IN PERSON. PATIENT CONTINUES TO HAVE SORES/DISCOMFORT IN HER MOUTH AND RELUCTANT ABOUT EATING. AT BEDSIDE OFF AND ON THROUGHOUT THE DAY.
--- NOTE | 2023-01-03 18:46 | NUR ---
SUMMARY PATIENT CONTINUES TO BE VERY WEAK. PATIENT CONTINUES TO HAVE POOR APPETITE. PATIENT UP FREQUENTLY PASSING SMALL AMOUNTS OF LIQUID STOOL WITH SOME BLOOD. CPN INFUSING THROUGH PICC LINE. PATIENT STARTED ON APPETITE STIMULANT TO ENCOURAGE APPETITE. PATIENT HAD TELEHEALTH VISIT WITH GI SPECIALIST AND WILL FOLLOW UP AN OUTPATIENT WITH A FACE TO FACE VISIT. JOSE MIGUEL STOCKINGS ON CATHETER IN PLACE AND DRAINING YELLOW URINE WITH SEDIMENT.
[2023-01-03 20:35] VITALS: BP 143/62
[2023-01-04 05:00] VITALS: BP 123/67
--- NOTE | 2023-01-04 05:02 | NUR ---
BLOOD DRAWN FROM PICC AND SENT TO LAB.
--- NOTE | 2023-01-04 05:02 | NUR ---
SHIFT SUMMARY NO ACUTE CHANGES TO PT STATUS. PT SLEEPING MUCH OF THE NIGHT. PT HAS CALL LIGHT WITHIN HER REACH. PT HAS NO COMPLAINTS AT THIS TIME.
[2023-01-04 05:33] LABS: Albumin, Blood 1.6 g/dL (3.4-5.0); Albumin/Globulin Ratio 0.6 (0.8-1.8); Bilirubin, Direct 0.1 mg/dL (0.0-0.3); Bilirubin, Indirect 0.2 mg/dL (0.1-0.7); Bilirubin, Total 0.3 mg/dL (0.1-1.0); Globulin, Blood 2.5 g/dL (2.2-4.0); Total Protein, Blood 4.1 g/dL (6.4-8.2)
[2023-01-04 07:57] VITALS: BP 141/71
--- NOTE | 2023-01-04 09:55 | NUR ---
"Spiritual Care Visit| Staff request Pt. is awake in bed and welcomes my visit. Pt. is pleasant and soft spoken. Facilitate a short life review and begin to focus on her hospitalization. Listen with empathy and a calming presence. Pt. displays evidence of trust and openess. Pastoral care is given and Pt. verbalizes her desire to get the energy to get through the infusions. Pt. welcomes prayer. Prayed with the Pt. and verbalizes gratitude for the spiritual care visit."
[2023-01-04 14:45] LABS: Albumin, Blood 1.6 g/dL (3.4-5.0); Albumin/Globulin Ratio 0.6 (0.8-1.8); Bilirubin, Total 0.3 mg/dL (0.1-1.0); Bun/Creatinine Ratio 71.1 (12.0-20.0); C-Reactive Protein, High Sens. 75.3 mg/L (0.000-3.000); Calcium, Blood 7.7 mg/dL (8.5-10.1); Creatinine, Blood 0.24 mg/dL (0.40-1.00); Globulin, Blood 2.8 g/dL (2.2-4.0); Phosphorus, Blood 1.9 mg/dL (2.5-4.9); Potassium, Blood 4.2 mmol/L (3.5-5.5); Total Protein, Blood 4.4 g/dL (6.4-8.2)
[2023-01-04 16:51] VITALS: BP 118/71
--- NOTE | 2023-01-04 18:30 | NUR ---
SHIFT SUMMARY PATIENT CONTINUES TO BE VERY WEAK. APPETITE POOR BUT IMPROVED WITH MEGACE. CONTINUES TO PASS MUCUS STOOL WITH PINK RED COLOR. SPECIMEN SENT TO LAB FOR FURTHER STUDIES. PATIENT HAS DRESSING OVER COCCYX AREA FOR EXCORIATED AREAS. PATIENT CONTINUES TO VERBALIZE ABOUT MOUTH SORES AND THROAT BEING RAW. NO SORES VISIBLE IN MOUTH. PATIENT CONTINUES TO USE SWISH AND SWALLOW AND MAJIC MOUTH WASH. PATIENT TO SEE GI SPECIALIST OUTPATIENT WHEN STABLE
[2023-01-04 20:45] VITALS: BP 140/70
[2023-01-05 02:09] VITALS: BP 117/66
--- NOTE | 2023-01-05 05:39 | NUR ---
PATIENT RESTED WELL THROUGH THE NIGHT, ORIENTED X4, CALLS TO MAKE NEEDS KNOWN. TPN INFUSING CONTINUOUSLY, NO PAIN REPORTED, VSS, 4 SMALL TO MEDIUM RED WATERY BM'S. 1X ASSIST TO BSC. MEHRDADN HAS A HARD TIME GETTING UP TPO THE SIT POSITION SHE IS VERY WEAK. NO OTHER ACUTE CHANGES TO REPORT.
[2023-01-05 06:11] LABS: BASOPHILS ABSOLUTE AUTO 0.02 K/mm3 (0.00-0.23); BASOPHILS PERCENT AUTO 0 % (0-2); Hematocrit 24.2 % (33.0-51.0); Hemoglobin 8.1 g/dL (11.5-16.0); LYMPHOCYTES ABSOLUTE AUTO 0.57 K/mm3 (0.84-5.20); LYMPHOCYTES PERCENT AUTO 11 % (21-46); MONOCYTES ABSOLUTE AUTO 0.13 K/mm3 (0.16-1.47); MONOCYTES PERCENT AUTO 3 % (4-13); Mean Corpuscular HGB 26.6 pg (26.0-34.0); Mean Corpuscular HGB Conc 33.5 g/dL (31.5-36.5); Mean Corpuscular Volume 79 fL (80-100); Mean Platelet Volume 10.6 fL (9.1-12.4); Platelet Count 143 K/mm3 (150-400); RDW Coefficient Variation 22.5 % (11.7-14.2); RDW Standard Deviation 64.3 fL (35.1-46.3); Red Blood Cell Count 3.05 M/mm3 (3.80-5.20); White Blood Cell Count 5.19 K/mm3 (4.00-11.30)
[2023-01-05 06:20] LABS: EOSINOPHILS PERCENT AUTO 0 % (0-6); IMMATURE GRAN ABSOLUTE AUTO 0.04 K/mm3 (0.00-0.10); IMMATURE GRAN PERCENT AUTO 1 % (0-1); NEUTROPHILS ABSOLUTE AUTO 4.43 K/mm3 (1.96-9.15); NEUTROPHILS PERCENT AUTO 85 % (41-73)
[2023-01-05 07:19] VITALS: BP 125/69
--- NOTE | 2023-01-05 13:36 | NUR ---
and R.N. left room and instantly at lunchtime the patient called for assist to commode. I answered immediately as iwas passing trays near. She was very upset and said shed been calling for an hour. I alerted her i was actually instantly responding. I then assisted her onto commode, changed out pad and fixed linens. She stated," I dont want to be done yet as it keeps coming." So I handed her call light and said id finish tray pass and be back. 8 minutes later i returned to check and she furiously told me shes been yelling for help for 25 minutes. Inna was witness that it is untrue and told her so. She is clean and back in bed. KS
[2023-01-05 14:44] LABS: Albumin, Blood 1.4 g/dL (3.4-5.0); Albumin/Globulin Ratio 0.5 (0.8-1.8); Bilirubin, Total 0.3 mg/dL (0.1-1.0); Bun/Creatinine Ratio 78.1 (12.0-20.0); Calcium, Blood 7.3 mg/dL (8.5-10.1); Creatinine, Blood 0.27 mg/dL (0.40-1.00); Globulin, Blood 2.7 g/dL (2.2-4.0); Potassium, Blood 4.5 mmol/L (3.5-5.5); Total Protein, Blood 4.1 g/dL (6.4-8.2)
[2023-01-05 17:03] VITALS: BP 111/61
--- NOTE | 2023-01-05 18:01 | NUR ---
SHIFT SUMMARY PT RESTING QUIETLY AWAKE AT START OF SHIFT, DURING SHIFT REPORT. PT RECEIVING TPN D/T WEAKNESS AND FTT. PT EATING ONLY SM AMT'S AT EACH MEAL. SWISH AND SWALLOW GIVEN PRIOR TO MEALS TO ASSIST PT WITH DIFFICULTY SWALLOWING. UP TO BSC, WITH 1P ASSIST, THRU OUT THE DAY FOR BLOODY BM'S; X4 THIS SHIFT. PT'S TO RM LATE MORNING AND HAS REMAINED TO PRESENT. THERAPY IN TO SEE PT DURING THE DAY. DR HERNANDEZ IN TO SEE PT THIS EVENING. NO NEW ORDERS TO PRESENT. PT TO D/C TO HOME WITH H/H WHEN MEDICALLY STABLE. DENIED FURTHER NEEDS. CALL LT IN REACH.
[2023-01-05 19:23] VITALS: BP 111/68
[2023-01-06 03:19] VITALS: BP 123/59
--- NOTE | 2023-01-06 03:38 | NUR ---
SHIFT SUMMERY,PT RESTING IN BED, PT HAS HAD MULTIPLE BMS WITH BLOOD TONIGHT. OINTMENT APPLYED TO RECTAL AREA AND DRG CHANBED X2. CALL LIGHT IN REACH . FIRE SAFETY REVIEW DONE.
[2023-01-06 04:35] LABS: Hematocrit 23.7 % (33.0-51.0); Hemoglobin 7.9 g/dL (11.5-16.0); Mean Corpuscular HGB 26.2 pg (26.0-34.0); Mean Corpuscular HGB Conc 33.3 g/dL (31.5-36.5); Mean Corpuscular Volume 79 fL (80-100); Mean Platelet Volume 9.7 fL (9.1-12.4); Platelet Count 128 K/mm3 (150-400); RDW Coefficient Variation 22.7 % (11.7-14.2); RDW Standard Deviation 65.6 fL (35.1-46.3); Red Blood Cell Count 3.01 M/mm3 (3.80-5.20); White Blood Cell Count 4.51 K/mm3 (4.00-11.30)
[2023-01-06 04:55] LABS: Albumin, Blood 1.4 g/dL (3.4-5.0); Albumin/Globulin Ratio 0.5 (0.8-1.8); Bilirubin, Total 0.3 mg/dL (0.1-1.0); Bun/Creatinine Ratio 83.9 (12.0-20.0); Calcium, Blood 7.3 mg/dL (8.5-10.1); Creatinine, Blood 0.27 mg/dL (0.40-1.00); Globulin, Blood 2.8 g/dL (2.2-4.0); Potassium, Blood 4.9 mmol/L (3.5-5.5); Total Protein, Blood 4.2 g/dL (6.4-8.2)
[2023-01-06 05:03] LABS: BAND PERCENT MAN 32 % (0-8); BASOPHILS PERCENT MAN 0 % (0-2); EOSINOPHILS PERCENT MAN 0 % (0-6); LYMPHOCYTES ABSOLUTE MAN 0.22 K/mm3 (0.84-5.20); LYMPHOCYTES PERCENT MAN 5 % (21-46); METAMYELOCYTE ABSOLUTE MAN 0.04 K/mm3 (0.00-0.00); METAMYELOCYTE PERCENT MAN 1 % (0-0); MONOCYTES ABSOLUTE MAN 0.04 K/mm3 (0.16-1.47); MONOCYTES PERCENT MAN 1 % (4-13); MYELOCYTE ABSOLUTE MAN 0.04 K/mm3 (0.00-0.00); MYELOCYTE PERCENT MAN 1 % (0-0); NEUTROPHILS ABSOLUTE MAN 4.14 K/mm3 (1.96-9.15); SEG NEUTROPHILS PERCENT MAN 60 % (41-73); TOTAL CELLS COUNTED 100
[2023-01-06 07:50] VITALS: BP 131/67
[2023-01-06 16:01] LABS: Hematocrit 24.7 % (33.0-51.0); Mean Corpuscular HGB Conc 32.4 g/dL (31.5-36.5); Mean Corpuscular Volume 80 fL (80-100); Mean Platelet Volume 10.2 fL (9.1-12.4); Platelet Count 128 K/mm3 (150-400); Red Blood Cell Count 3.08 M/mm3 (3.80-5.20); White Blood Cell Count 6.05 K/mm3 (4.00-11.30)
[2023-01-06 16:18] LABS: Bun/Creatinine Ratio 116.6 (12.0-20.0); Calcium, Blood 7.8 mg/dL (8.5-10.1); Creatinine, Blood 0.28 mg/dL (0.40-1.00); Magnesium, Blood 2.3 mg/dL (1.6-2.4); Phosphorus, Blood 2.7 mg/dL (2.5-4.9); Potassium, Blood 4.9 mmol/L (3.5-5.5)
[2023-01-06 16:20] LABS: BAND PERCENT MAN 20 % (0-8); BASOPHILS PERCENT MAN 0 % (0-2); EOSINOPHILS PERCENT MAN 0 % (0-6); LYMPHOCYTES ABSOLUTE MAN 0.18 K/mm3 (0.84-5.20); LYMPHOCYTES PERCENT MAN 3 % (21-46); MONOCYTES ABSOLUTE MAN 0.12 K/mm3 (0.16-1.47); MONOCYTES PERCENT MAN 2 % (4-13); MYELOCYTE ABSOLUTE MAN 0.06 K/mm3 (0.00-0.00); MYELOCYTE PERCENT MAN 1 % (0-0); NEUTROPHILS ABSOLUTE MAN 5.68 K/mm3 (1.96-9.15); SEG NEUTROPHILS PERCENT MAN 74 % (41-73); TOTAL CELLS COUNTED 100
--- NOTE | 2023-01-06 18:35 | NUR ---
SHIFT SUMMARY PT RESTING QUIETLY AT START OF SHIFT. REPORTED BEING INCONTINENT OF BLOODY STOOL WHEN BULK TANK CAR UNLOADER OBTAINED VS. PT CLEANED, CHANGED, AND REPOSITIONED. PT LATER UP TO BSC FOR MORE BLOODY STOOLS THRU OUT THE DAY WELL INCONTINENT BLOODY STOOLS. PT ABLE TO EAT BREAKFAST AND THEN ATE MASHED POTATOES FOR LUNCH. PT DECLINED TO EAT ANYTHING FOR DINNER TO LET THE BOWEL REST. DR HERNANDEZ IN TO SEE PT THIS AFTERNOON. GI CONSULT ORDERED. DR JENNINGS TO BE NOTIFIED IN AM. PT AND UPDATED. TPN INFUSING PER EMAR. PT ABLE TO EAT ICE AND SIP ON WATER. AT BS THIS AFTERNOON AND PREPARING TO LEAVE FOR NIGHT. PT POSITIONED FOR COMFORT. DENIED FURTHER NEEDS AT THIS TIME. CALL LT IN REACH.
[2023-01-07 02:29] VITALS: BP 121/72
[2023-01-07 05:25] LABS: Hematocrit 25.3 % (33.0-51.0); Hemoglobin 8.2 g/dL (11.5-16.0); Mean Corpuscular HGB 26.3 pg (26.0-34.0); Mean Corpuscular HGB Conc 32.4 g/dL (31.5-36.5); Mean Corpuscular Volume 81 fL (80-100); Mean Platelet Volume 11.2 fL (9.1-12.4); Platelet Count 135 K/mm3 (150-400); RDW Coefficient Variation 23.4 % (11.7-14.2); RDW Standard Deviation 68.3 fL (35.1-46.3); Red Blood Cell Count 3.12 M/mm3 (3.80-5.20); White Blood Cell Count 5.16 K/mm3 (4.00-11.30)
--- NOTE | 2023-01-07 05:28 | NUR ---
SHIFT SUMMERY, PT RESTING IN BED, PT HAD SEVERAL LIQ BLOODY STOOLS. TPN RUNNING. PT SLEEPING INTERMITANTLY. AT TIMES PT CONT AND OTHERS PT INCONT OF STOOL. CALL LIGHT IN REACH . FIRE SAFETY REVIEWED.
[2023-01-07 05:54] LABS: BAND PERCENT MAN 16 % (0-8); BASOPHILS PERCENT MAN 0 % (0-2); EOSINOPHILS PERCENT MAN 0 % (0-6); LYMPHOCYTES % ATYPICAL MANUAL 1 % (0-0); LYMPHOCYTES PERCENT MAN 3 % (21-46); MONOCYTES ABSOLUTE MAN 0.05 K/mm3 (0.16-1.47); MONOCYTES PERCENT MAN 1 % (4-13); SEG NEUTROPHILS PERCENT MAN 79 % (41-73); TOTAL CELLS COUNTED 100
[2023-01-07 06:00] LABS: Percent Saturation 24.6 % (15.0-50.0)
[2023-01-07 07:28] VITALS: BP 129/72
[2023-01-07 10:20] LABS: Hematocrit 25.9 % (33.0-51.0); Hemoglobin 8.4 g/dL (11.5-16.0)
[2023-01-07 17:35] LABS: Hemoglobin 8.1 g/dL (11.5-16.0)
[2023-01-07 17:38] VITALS: BP 108/71
--- NOTE | 2023-01-07 17:57 | NUR ---
SHIFT SUMMARY: Pt remains A&Ox3 this shift. VSS. Increased weakness noted when ast to BSC. Now using bedpan. Liquid red blood per rectum. Dr. Worthy aware, awaiting GI consult. PICC to right upper arm intact. Right elbow with edema and weeping. Area with gentle wrap applied and elevated. Resp even nonlabored on RA. TPN infusing as ordered. Pt declines oral intact. Consuming ice chips. H&H Q6 x4 in progress. Brooks intact with yellow/orange in color output. Discoloration to bottom of both feet. Pt repositioned for comfort. Emotional support provided.
[2023-01-07 19:31] VITALS: BP 118/70
[2023-01-07 21:57] LABS: Hematocrit 23.8 % (33.0-51.0); Hemoglobin 7.7 g/dL (11.5-16.0)
[2023-01-08] VITALS (7 sets, daily range): BP systolic 92–125; BP diastolic 59–67
[2023-01-08 04:38] LABS: Hemoglobin 7.4 g/dL (11.5-16.0); Mean Corpuscular HGB 26.2 pg (26.0-34.0); Mean Corpuscular HGB Conc 32.2 g/dL (31.5-36.5); Mean Corpuscular Volume 82 fL (80-100); Mean Platelet Volume 11.4 fL (9.1-12.4); Platelet Count 123 K/mm3 (150-400); RDW Coefficient Variation 23.2 % (11.7-14.2); RDW Standard Deviation 68.4 fL (35.1-46.3); Red Blood Cell Count 2.82 M/mm3 (3.80-5.20); White Blood Cell Count 5.42 K/mm3 (4.00-11.30)
[2023-01-08 05:09] LABS: C-REACTIVE PROTEIN, EXT RANGE 9.99 mg/dL (0.000-0.300)
[2023-01-08 05:10] LABS: Albumin, Blood 1.3 g/dL (3.4-5.0); Albumin/Globulin Ratio 0.5 (0.8-1.8); BAND PERCENT MAN 29 % (0-8); BASOPHILS PERCENT MAN 0 % (0-2); Bilirubin, Total 0.4 mg/dL (0.1-1.0); Calcium, Blood 7.9 mg/dL (8.5-10.1); Creatinine, Blood 0.37 mg/dL (0.40-1.00); EOSINOPHILS PERCENT MAN 0 % (0-6); Globulin, Blood 2.7 g/dL (2.2-4.0); LYMPHOCYTES ABSOLUTE MAN 0.21 K/mm3 (0.84-5.20); LYMPHOCYTES PERCENT MAN 4 % (21-46); MONOCYTES PERCENT MAN 0 % (4-13); SEG NEUTROPHILS PERCENT MAN 67 % (41-73); TOTAL CELLS COUNTED 100
--- NOTE | 2023-01-08 05:25 | NUR ---
SHIFT SUMMERY, PT RESTING IN BED, PT SLEEPING A LITTLE INTERMITANTLY. CALL ING OFFTEN TO BE CHANGED FOR SM AMOUNTS OF BLOODY LIQ. CALL LIGHT IN REACH . FIRE SAFETY REVIEWED.
[2023-01-08 12:15] LABS: Hematocrit 23.9 % (33.0-51.0); Hemoglobin 7.8 g/dL (11.5-16.0)
--- NOTE | 2023-01-08 18:39 | NUR ---
SHIFT SUMMARY: Pt remained A&O x3 this shift. Generalized weakness. Resp even nonlabored on RA. Brooks with sediment this am without flow. Unsuccessful with irrigation. Brooks removed, pt with soaked briefs today. Dr Chong aware. Two bouts of blood from rectum today. No stool. EGD rescheduled due to SVT/ST. Pt back to med floor with tele orders. Plan is to have EGD tomorrow pending stability. Plan of care reviewed with pt and spouse. Emotional support provided.
[2023-01-08 20:03] LABS: Hematocrit 23.9 % (33.0-51.0); Hemoglobin 7.8 g/dL (11.5-16.0)
[2023-01-09] VITALS (17 sets, daily range): BP systolic 112–155; BP diastolic 61–98
[2023-01-09 00:38] LABS: Hemoglobin 7.4 g/dL (11.5-16.0)
--- NOTE | 2023-01-09 03:57 | NUR ---
SHIFT SUMMARY 77 YR F ADMITTED ON 12/27/22 FOR DEHYDRATION. DNR. NO ACUTE CHANGES THIS SHIFT. PT WAS ABLE TO SWALLOW HER MEDS WITH YOGURT THIS SHIFT. TPN CURRENTLY RUNNING AT 50/ML/HR. ONE EPISODE OF INCONTINENCE OF URINE THIS SHIFT AND BRIEF WAS HEAVILY SOAKED. NO BM THIS SHIFT. PT HAS MOSTLY SLEPT THIS SHIFT BUT IS A&O WHEN AWAKE.
[2023-01-09 06:44] LABS: Hematocrit 23.5 % (33.0-51.0); Hemoglobin 7.4 g/dL (11.5-16.0)
[2023-01-09 07:10] LABS: Albumin, Blood 1.3 g/dL (3.4-5.0); Albumin/Globulin Ratio 0.4 (0.8-1.8); Bilirubin, Total 0.3 mg/dL (0.1-1.0); Bun/Creatinine Ratio 197.8 (12.0-20.0); Calcium, Blood 8.4 mg/dL (8.5-10.1); Creatinine, Blood 0.27 mg/dL (0.40-1.00); Potassium, Blood 4.7 mmol/L (3.5-5.5); Total Protein, Blood 4.3 g/dL (6.4-8.2)
--- NOTE | 2023-01-09 13:20 | NUR ---
PRBC 1 UNIT PRBC ORDERED. PT TOLERATAING WELL WITH NO S/S OF TRANSFUSION REACTION. INFUSING AT 150 ML/HR. PT HAS A DATE FOR HER EGD OF 1430. PT SPOUCE AT BEDSIDE. VSS. CONTINUE POC.
[2023-01-09 16:54] LABS: Magnesium, Blood 2.4 mg/dL (1.6-2.4); Phosphorus, Blood 2.6 mg/dL (2.5-4.9)
--- NOTE | 2023-01-09 20:56 | NUR ---
01/09/232055 Lissette Perkins WITH DR. RIVAS; SEE ANESTHESIA RECORDS.
--- NOTE | 2023-01-09 22:56 | NUR ---
PATIENT BACK FROM EGD PROCEDURE WITH DR JENNINGS. NOAM POE REPORTS PATIENT TOLERATED WELL. BACK IN ROOM WITH SPOUSE. ELIESER.
[2023-01-10] VITALS (38 sets, daily range): BP systolic 75–150; BP diastolic 38–88
--- NOTE | 2023-01-10 04:13 | NUR ---
SHIFT SUMMARY PATIENT HAD NO ACUTE CHANGES. AXOX 4 AND BEDREST. OUT FOR EGD PROCEDURE WITH DR JENNINGS THIS SHIFT LATE EVENING AND THAN BACK IN ROOM. SPOUSE PRESENT IN ROOM MOST OF THE SHIFT. PICC LINE RIGHT ARM INFUSING TPN @ 50, TELE MONITOR ST 89. VSS/AFEBRILE. DENIES PAIN, SOB, AND N/V. CALL LIGHT IN REACH. BED IN LOWEST POSITION. WILL CONTINUE TO MONITOR UNTIL DAY SHIFT NURSE ASSUMES CARE.
--- NOTE | 2023-01-10 04:43 | NUR ---
TELEMETRY EVENT. TECH REPORTS AFIB 160-180. HOSPITALIST DR NATION IS ORDERING IV METOPROLOL 5 MG. WCTM
--- NOTE | 2023-01-10 05:53 | NUR ---
PATIENT HR DOWN TO AFIB HIGH 120'S-130. HOSPITALIST DR NATION CHANGED PO LOPRESSOR 37.5 MG BID TO 50 MG BID AND TO START NOW. WCTM.
[2023-01-10 06:45] LABS: Hematocrit 26.3 % (33.0-51.0); Hemoglobin 8.6 g/dL (11.5-16.0); Mean Corpuscular HGB 27.1 pg (26.0-34.0); Mean Corpuscular HGB Conc 32.7 g/dL (31.5-36.5); Mean Corpuscular Volume 83 fL (80-100); Mean Platelet Volume 11.5 fL (9.1-12.4); Platelet Count 109 K/mm3 (150-400); RDW Coefficient Variation 20.5 % (11.7-14.2); RDW Standard Deviation 61.7 fL (35.1-46.3); Red Blood Cell Count 3.17 M/mm3 (3.80-5.20); White Blood Cell Count 7.65 K/mm3 (4.00-11.30)
--- NOTE | 2023-01-10 06:49 | NUR ---
TELEMETRY AFIB 160-[address] NATION ORDERD AN ADDITIONAL DOSE OF IV LOPRESSOR 5 MG. HE REPORTED WITH PO LOPRESSOR 50 MG AND IV LOPRESSOR SHOULD LOWER AND SUSTAIN HR. TELE MONITORING. TM
--- NOTE | 2023-01-10 07:00 | NUR ---
TELEMETRY HR AFIB DOWN TO 120'S TO 140.
[2023-01-10 07:02] LABS: Triglycerides 190 mg/dL (30-160)
[2023-01-10 07:12] LABS: BAND PERCENT MAN 5 % (0-8); BASOPHILS PERCENT MAN 0 % (0-2); EOSINOPHILS PERCENT MAN 0 % (0-6); LYMPHOCYTES ABSOLUTE MAN 0.99 K/mm3 (0.84-5.20); LYMPHOCYTES PERCENT MAN 13 % (21-46); MONOCYTES PERCENT MAN 0 % (4-13); NEUTROPHILS ABSOLUTE MAN 6.65 K/mm3 (1.96-9.15); SEG NEUTROPHILS PERCENT MAN 82 % (41-73); TOTAL CELLS COUNTED 100
--- NOTE | 2023-01-10 10:56 | NUR ---
TRANSFER ICU 6 PT ROOM ASSIGNED TO ICU 6. REPORT CALLED. PT TRANSPORTED VIA BED [id number] BY RN X2. PT IN ATTENDANCE. PT MOVED TO NEW BED WITH 3 ASSIST. CARDIZEM GTT 5MG/HR. VSS. AT BEDSIDE. CONTINUE POC.
--- NOTE | 2023-01-10 11:08 | NUR ---
"Spiritual Care Visit | Nurse and family request Pt. is moved from 358 to ICU. This strainer cleaner brought the Pts. personal belongings (phone health record technician and magazines) to Pts. spouse who was waiting in ICU for Pts. arrival. This strainer cleaner facilitated a life review with the spouse as the nurses were settling Pt. into her room. Spouse displays evidence of being reflective and emotional. Listen with empathy and a calming presence. The spouse verbalized that they had met with nurse Betancourt from Palliative Care. The spouse also verbalized the Pts. openness for colon surgery. The spouse and the Pt. both verbalized the Pts. interest in being baptized. This strainer cleaner collected a vase and baptized the Pt. based on her confession of shayan. Pt. was baptized in her bed approx. 11:00am. Spouse is present. Both verbalize gratitude for the spiritual care support. This strainer cleaner will remain avilable for the Pt. and family."
--- NOTE | 2023-01-10 12:11 | NUR ---
Care Conference: Met with pt's Ersnt and Dr. Lepe prior to transfer to ICU this morning. The pt's health is deteriorating daily, and she made a comment last evening to bedside nurse, "I know I'm dying". This was shared with her this morning, and he stated he has the same concern. Pt had an upper endoscopy yesterday with biopsies taken. According to Dr. Morrow's report, the pt's esophagus is friable, began bleeding with any touch of the camera. Pt's is calling pt's 2 sons and 2 sisters today, to inform them of how serious the situation is. Currently, the treatment needed for her colitis is damaging her esophagus, possibly beyond repair. Plan to meet with pt this afternoon after she has transferred and has some time to rest.
--- NOTE | 2023-01-10 12:52 | NUR ---
ARRIVAL TO ICU PT ARRIVES TO ICU FOR CARDIZEM GTT AT 1034. REPORT FROM ALANNAH POE. PT CACHEXIC. OPENS EYES TO VOICE. PT EXPRESSES PAIN c SPEAKING. LIMITED HX FOR PT COMFORT. NODS YES/NO, MAKES NEEDS KNOWN. GENERALIZED WEAKNESS. AFIB ON MONITOR, RATE 110-150'S. BP STABLE. CARDIZEM GTT INFUSING, TITRATE FOR HR<110. PT PALE. FAINT PULSES. SWELLING NOTED TO RIGHT ARM DISTAL TO PICC. PICC DRAWS BLOOD. U/S ORDERED. PT HAS SORES ON MOUTH AND BUTTOCKS. CLEANED OF MUCOUS, RED STOOL. AT BEDSIDE. WILL CONTINUE TO MONITOR.
--- NOTE | 2023-01-10 14:41 | NUR ---
Spiritual Care Visit w/Spouse Visited with Spouse outside the Pts. room. Facilitated life review and established rapport. Spouse had questions about "what to do" if the Pt. pases. EOL education is given. Spouse verbalized that [facility] is the families the home of choice. Spouse verbalized gratitude for the spiritual care support.
--- NOTE | 2023-01-10 16:00 | NUR ---
FAMILY MEETING DR MOON, DR JENNINGS, ALLIE PALLIATIVE CARE, AND MYSELF carlos a TUCKER. DISCUSSED DVT TO EXT, USE OF HEPARIN, REMOVAL OF PICC, PLACEMENT OF DOBHOFF. PLAN TO OBTAIN PER IV ACCESS, REMOVE PICC, PLACE DOBHOFF, START ENTERAL FEEDING. PT AND IN AGREEMENT c PLAN.
--- NOTE | 2023-01-10 18:30 | NUR ---
UPDATE POWERGLIDE STARTED ON ISA. PICC LINE REMOVED. AWAITING ECHO. SPOKE WITH TECH AND PLAN TO COMPLETE STUDY TONIGHT. PT EDUCATED REGARDING DOBHOFF AND AGREEABLE. AT BEDSIDE AND PROVIDED UPDATE. CARDIZEM INFUSING AT 10MG/HR. HR 90S-110S. SBP 80S-110S. PT HAD INCONTINENT VOID, NEW ATTENDS APPLIED. MEPILEX PLACED ON COCCYX.
--- NOTE | 2023-01-10 20:42 | NUR ---
ASSUMPTION OF CARE THIS RN ASSUMED CARE OF PATIENT AT 1900. REPORT TAKEN FROM ISABEL POE. PT ALERT AND ORIENTED TO SELF, SITUATION, AND FAMILY. PT NOTED TO ANSWER WITH SOFT VOICE OR NODS YES/NO TO QUESTIONS. PT WAS UNABLE TO DRINK WATER THIS EVENING; EVENING PO MED HELD. PT NOTED TO BE WEAK WITH MOVEMENTS. CARDIZEM GTT INFUSING AT 5MG/HR. AFIB ON MONITOR WITH HR 90-100'S. PT DENIES CHEST PAIN/PRESSURE AT THIS TIME. BP STABLE WITH SBP 100'S. ON RA WITH SPO2 >92%. AFEBRILE. DRESSING ON RIGHT UPPER ARM C/D/I, SOFT AND NONTENDER. REPOSITIONING Q2HRS. BED IN LOWEST POSITION AND CALL LIGHT WITHIN REACH.
[2023-01-11] VITALS (51 sets, daily range): BP systolic 74–151; BP diastolic 46–106
[2023-01-11 04:59] LABS: Hematocrit 22.3 % (33.0-51.0); Hemoglobin 7.1 g/dL (11.5-16.0); Mean Corpuscular HGB 26.7 pg (26.0-34.0); Mean Corpuscular HGB Conc 31.8 g/dL (31.5-36.5); Mean Corpuscular Volume 84 fL (80-100); Mean Platelet Volume 11.3 fL (9.1-12.4); NRBC ABSOLUTE 0.03 K/mm3 (0.00-0.02); NRBC Auto 0.4 /100 WBC (0.0-0.2); Platelet Count 114 K/mm3 (150-400); RDW Coefficient Variation 22.2 % (11.7-14.2); RDW Standard Deviation 67.1 fL (35.1-46.3); Red Blood Cell Count 2.66 M/mm3 (3.80-5.20); White Blood Cell Count 8.51 K/mm3 (4.00-11.30)
[2023-01-11 05:38] LABS: Source, Urine Foley catheter
[2023-01-11 05:41] LABS: Appearance, Urine Cloudy (Clear); Bilirubin, Urine Neg (Neg); Blood, Urine 4+ (Neg); Color, Urine Yellow (P-Yellow); Glucose Qualitative, Urine Neg (Neg); Ketones, Urine Neg (Neg); Leukocyte Esterase, Urine 3+ (Neg); Nitrite, Urine Neg (Neg); Protein, Urine 2+ (Neg); Urobilinogen, Urine 2+ (Normal)
[2023-01-11 05:42] LABS: BAND PERCENT MAN 14 % (0-8); BASOPHILS PERCENT MAN 0 % (0-2); EOSINOPHILS PERCENT MAN 0 % (0-6); LYMPHOCYTES ABSOLUTE MAN 0.17 K/mm3 (0.84-5.20); LYMPHOCYTES PERCENT MAN 2 % (21-46); MONOCYTES ABSOLUTE MAN 0.25 K/mm3 (0.16-1.47); MONOCYTES PERCENT MAN 3 % (4-13); MYELOCYTE ABSOLUTE MAN 0.08 K/mm3 (0.00-0.00); MYELOCYTE PERCENT MAN 1 % (0-0); NEUTROPHILS ABSOLUTE MAN 7.99 K/mm3 (1.96-9.15); SEG NEUTROPHILS PERCENT MAN 80 % (41-73); TOTAL CELLS COUNTED 100
--- NOTE | 2023-01-11 05:51 | NUR ---
SHIFT SUMMARY PT CONTINUES TO BE ON DILT GTT AT 10MG/HR. AFIB WITH HR 90-110'S DURING THIS SHIFT; TITRATING NEEDED. BP STABLE. AFEBRILE. ON RA WITH SPO2 >92%. PT WITH DISTENDED/PAINFUL BLADDER THIS AM; PT STATING SHE NEEDS TO VOID BUT UNABLE. BLADDER SCAN SHOWING 920MLS. NOTIFIED; ORDER OBTAINED FOR INDWELLING CATHETER. 620MLS DRAINED AFTER PLACED. UA SENT TO LAB. CLOUDY YELLOW URINE NOTED. REPOSITIONING Q2HRS. RIGHT UPPER ARM DRESSING WITH SMALL AMOUNT OF WEEPING, OTHERWISE C/D/I, SOFT/NONTENDER. ORAL CARE DONE Q4HRS. BED IN LOWEST POSITION AND CALL LIGHT WITHIN REACH. THIS RN WILL CONTINUE TO MONITOR UNTIL SHIFT CHANGE AT 0700.
[2023-01-11 05:53] LABS: Bacteria Many /hpf; Red Blood Cells, Urine 0-2 /hpf (0-2); Squamous Epithelial Cells Not Seen /hpf (Few); White Blood Cells, Urine 50-100 /hpf (0-5)
[2023-01-11 06:19] LABS: Albumin, Blood 2.3 g/dL (3.4-5.0); Bilirubin, Total 3.5 mg/dL (0.1-1.0); Bun/Creatinine Ratio 179.1 (12.0-20.0); Calcium, Blood 8.7 mg/dL (8.5-10.1); Creatinine, Blood 0.27 mg/dL (0.40-1.00); Globulin, Blood 2.2 g/dL (2.2-4.0); Phosphorus, Blood 1.5 mg/dL (2.5-4.9); Potassium, Blood 3.1 mmol/L (3.5-5.5); Total Protein, Blood 4.5 g/dL (6.4-8.2)
--- NOTE | 2023-01-11 09:11 | NUR ---
ASSUMED CARE OF IDRIS @ 0700, SHE WAS SLEEPING. AWAKENS TO VOICE AND ANSWERS VERY QUIETLY. REPOSITIONED. C/O ABDOMINAL PAIN AND TENDERNESS. BELLY FLAT. IV DILTIAZEM IN THE ISA @ 15, DECREASED TO 10 WITH RATE IN THE 90'S. ATTEMPTS TO FEED PT SOME MILK AND CREAM OF WHEAT, ABLE TO GET IN ABOUT 3 BITES AND ONE DRINK, ABLE TO TAKE IN HER TOPROL WITH A SIP OF WATER, C/O PAINFUL. PULSES BOUNDING IN RIGHT ARM AND ABDOMEN. IN FOR BRIEF VISIT. DISCUSSED FEEDING TUBE AND NUTRITION.
--- NOTE | 2023-01-11 11:06 | NUR ---
Care Conference: Yesterday afternoon, , Dr. Lepe, pt's Micah, bedside RN Nazia, and this Palliative Care RN had a meeting to discuss the pt's current situation. A clot was found at the PICC site, so it was removed. Due to the friable tissue of her esophagus, she is not a candidate for blood thinners. The idea of a dobhoff for nutrition was mentioned by Dr. Morrow, but at this point, the MANAGER ASSESSMENT's are uncomfortable to place the dobhoff for fear of puncture or tearing of esophagus lining. Placed call to Dr. Rodriguez who is caring for pt today. He suggests requesting radiology place the dobhoff, but Dr. Arellano declined, stating it should be done by MANAGER ASSESSMENT's, as the result would be the same, whether or not there is visibility via flouroscopy. Relayed this information to Dr. Rodriguez, who requests a call be placed to Dr. Morrow to advise. Placed call to Dr. Morrow, who again ordered dobhoff placed. At this time, the ICU clinical coordinator also aware. Dr. Rodriguez is aware and speaking to family. Will await further direction.
--- NOTE | 2023-01-11 12:18 | NUR ---
LONG STANDING DISCUSSION AMONGST CARE TEAM, ICU CC ARY, , ALLIE,CHIEF SCHOOL FINANCE OFFICER AND MYSELF IN REGARDS TO HOW TO PROCEED WITH THE "DOBBHOFF" PLACEMENT. UNDERSTANDS CONCERNS OF NURSES CONCERNED ABOUT PUNCTURE OF ESOPHAGUS WITH TUBE PLACEMENT, CONCERNED FOR HOW LONG WOULD THIS TUBE BE IN PLACE, SAID HE WOULDN'T PLACE IT, NOR WOULD RADIOLOGY. THIS HAS BEEN COMMUNICATED WITH . WE ARE GOING TO CONTINUE TO TRY TO KEEP HER MOUTH MOIST AND GET FLUIDS/NUTRITION IN HER SHE TOLERATES. HER CARDIZEM IS CURRENTLY ON STANDBY, HER HR IS <100 AND BP STABLE. SHE IS ABLE TO EXPRESS HER NEEDS.
--- NOTE | 2023-01-11 14:26 | NUR ---
Pt's spoke with Dr. Rodriguez, and at this time pt's along with pt state they want to continue, "one day at a time", attempting to have pt take in oral nutrition. Pt is not having a dobhoff placed as the risks outweigh the benefit. Pt's sisters Juanita and Rowena have been visiting pt, and although pt appears to be sleeping through most of the visits, she does smile and appear to know they are present. Pt's son in to visit yesterday. The family, including pt and are all aware of pt's fragility, and overall poor prognosis. However the pt has indicated she wishes to continue attempting treatment. Has infusion of Entyvio scheduled for Saturday, 01/14 as inpatient. ICU bedside RN Staci reports pt appears painful with even light touch to abdomen.
--- NOTE | 2023-01-11 16:12 | NUR ---
PT WAS SEEN BY , HE ORDERED A SWALLOW EVAL WITH SPEECH THERAPY. TAYLOR CAME DOWN AND PERFORMED THE EVAL WITH IN THE ROOM. PT WAS UNABLE TO SWALLOW ANYTHING WITHOUT A WEAK COUGH. SEE TAYLOR'S NOTES. THE SPOUSE IS UNDER THE IMPRESSION THAT THERE IS IMPROVEMENT IN THE COLON AND THAT SHE NEEDS TO "GET OVER THE INFECTION" THAT IS IN HER THROAT AND THEY CAN MOVE PAST THIS. BOTH AND HAVE SPOKE TO HIM TODAY. A CALL WAS MADE TO DR. JENNINGS IN REGARDS TO THE FINDINGS. HE SAID HE WOULD BE BY TO SPEAK WITH THE SPOUSE LATER. IDRIS REMAINS VERY WEAK AND IN PAIN. SHE IS BOTHERED BY ANY TOUCH AND MOVEMENT. THE RIGHT ARM THAT HAD THE PICC, IS HARD AND UNDULATED. AN ICE PACK WAS PLACED FOR HER COMFORT. SHE CRIES OUT WHEN SHE IS TURNED, WHEN MOISTURE IS PLACED ON HER LIPS.
[2023-01-12] VITALS (25 sets, daily range): BP systolic 88–154; BP diastolic 48–89
[2023-01-12 05:19] LABS: Hematocrit 18.5 % (33.0-51.0); Mean Corpuscular HGB 26.5 pg (26.0-34.0); Mean Corpuscular HGB Conc 30.8 g/dL (31.5-36.5); Mean Corpuscular Volume 86 fL (80-100); Mean Platelet Volume 11.5 fL (9.1-12.4); NRBC ABSOLUTE 0.04 K/mm3 (0.00-0.02); NRBC Auto 0.5 /100 WBC (0.0-0.2); Platelet Count 86 K/mm3 (150-400); RDW Coefficient Variation 23.4 % (11.7-14.2); RDW Standard Deviation 72.9 fL (35.1-46.3); Red Blood Cell Count 2.15 M/mm3 (3.80-5.20); White Blood Cell Count 7.51 K/mm3 (4.00-11.30)
[2023-01-12 05:36] LABS: Hemoglobin 5.7 g/dL (11.5-16.0)
[2023-01-12 05:53] LABS: BAND PERCENT MAN 30 % (0-8); BASOPHILS PERCENT MAN 0 % (0-2); EOSINOPHILS PERCENT MAN 0 % (0-6); LYMPHOCYTES ABSOLUTE MAN 0.45 K/mm3 (0.84-5.20); LYMPHOCYTES PERCENT MAN 6 % (21-46); MONOCYTES ABSOLUTE MAN 0.22 K/mm3 (0.16-1.47); MONOCYTES PERCENT MAN 3 % (4-13); NEUTROPHILS ABSOLUTE MAN 6.83 K/mm3 (1.96-9.15); SEG NEUTROPHILS PERCENT MAN 61 % (41-73); TOTAL CELLS COUNTED 100
[2023-01-12 06:07] LABS: Albumin, Blood 2.9 g/dL (3.4-5.0); Albumin/Globulin Ratio 1.4 (0.8-1.8); Bilirubin, Total 4.5 mg/dL (0.1-1.0); Bun/Creatinine Ratio 104.2 (12.0-20.0); Calcium, Blood 9.3 mg/dL (8.5-10.1); Creatinine, Blood 0.36 mg/dL (0.40-1.00); Potassium, Blood 2.6 mmol/L (3.5-5.5); Total Protein, Blood 4.9 g/dL (6.4-8.2)
--- NOTE | 2023-01-12 06:29 | NUR ---
SHIFT SUMMARY PT RESTING QUIETLY WHEN UNDISTURBED. ROUSES EASILY TO VERBAL STIMULI. CONTINUES WITH SLOW VERBAL RESPONSE AND SOFT SPEECH. C/O GENERALIZED PAIN, INCREASED WITH REPOSITIONING, BUT DENIES NEED FOR PAIN MEDS. PT DOES NOT TOLERATED REPOSITIONING AND ATTENDS CHANGES VERY WELL. VERY FRAIL. MOVES ALL EXTREMITIES. MONITOR SHOWS AFIB, RATE VARIED BETWEEN 90s-140s. MEDICATED WITH LOPRESSOR 5MG IV X 2 DOSES. BP STABLE. AFEBRILE. RESPIRATIONS SHALLOW, BUT UNLABORED. RA SATS STABLE. CONTINUES TO BE NPO. INCONTINENT OF LOOSE BROWN STOOL X 5- ATTENDS IN PLACE. BROWN PATENT AND DRAINING SIDNEY URINE. ISA POWERGLIDE PATENT. RIGHT UPPER ARM WITH SOME SWELLING AND CONTINUED TENDERNESS. NEW ORDERS RECEIVED THIS AM FOR KCL 40 mEq IV, D5 IVFs, AND TO TRANSFUSE 1 UNIT PRBC WHEN PRODUCT AVAILABLE. WILL REPORT TO OMCOMING RN WHEN AVAILABLE.
--- NOTE | 2023-01-12 11:13 | NUR ---
LATE ENTRY: CARE ASSUMED OF IDRIS AT 0700, SHE NEEDED HER K+ RIDER GIVEN AND A UNIT OF BLOOD STARTED. SHE WAS FRAIL IN APPEARANCE, VERY MINIMAL RESPONSE FROM HER. SOME MOANS, NO EYE OPENING. PT TOLD WHAT WAS GOING ON. SECOND IV START DONE. HEART RATE CONTINUED TO BE ELEVATED, DILTIAZEM RESTARTED. CAME IN TO WAIT FOR . WHEN BLOOD WAS NEARLY IN, CAME TO SEE THE PATIENT AND A DISCUSSION WAS HAD WITH THE OUTSIDE THE ROOM. EXPLAINED THAT CURRENTLY THERE IS NO OPTION FOR NUTRITION DUE TO THE NATURE AND EXTENT OF THE INFECTIONS SHE IS CURRENTLY EXPERIENCING. HE ALSO EXPLAINED HOW DIFFICULT IT WOULD BE FOR HER TO RECOVER FROM ALL OF THIS WITH THE CONDITION OF HER BODY BEING COMPROMISED IT IS. A DECISION WAS THEN MADE BY THE SPOUSE TO TRANSITION TO COMFORT CARE. REPORT HAD BEEN GIVEN TO BENNY JOHNSON, PRIOR TO THE MEETING. A CALL WAS PLACED TO BENNY AND UPDATE GIVEN. PT'S BLOOD COMPLETED. THE K+ WAS NEARLY COMPLETE AND IT WAS STOPPED, THE DILTIAEM WAS STOPPED, THE IV SITES WERE FLUSHED. PT MOVED TO PCU ROOM 19 TO CARE OF BENNY.
--- NOTE | 2023-01-12 12:52 | NUR ---
Patient is lying in bed and alert. Spouse, Micah and son Cesario are bedside. THey tell me about the medical issues, patient's recent buddhist in the hospital, the shift to comfort measures only and the currents concerns. Micah then talks at length about their relationship, their love for each other and the deep pain her medical condition brings. I conduct a life review, normalize their feelings and fears, and provide therapeutic listening, gentle compliance counsel, theological insights and prayer. Both patient and Miach voice their gratitude for the visit and they display evidence of being comforted. I will cotninue to remain available to patient and family.
--- NOTE | 2023-01-12 13:04 | NUR ---
UPDATE PT TRANSFERRED TO PCU FROM ICU W/ CC ORDERS. FAMILY IN ROOM. INSTRUCTOR OF EDUCATION NOTIFIED. PHARMACY CALLED TO INQUIRE ABOUT CODIENE ALLERGY PRIOR TO APPROVING MORPHINE ORDER. PT STATES SEVERE CODIENE REACTION. PHARMACY W/ ORDERS TO DC MORPHINE. PT DENYING PAIN MEDICATION AT THIS TIME.
--- NOTE | 2023-01-12 15:41 | NUR ---
TRANSFER PT ARRIVED TO 223 FROM PCU ON HER BED. REPORT RECIEVED FROM PREVIOUS RN. FAMILY AT BEDSIDE. PROVIDED CHAIRS AND EDUCATED FAMILY TO CALL WITH ANY CONCERNS. PT IS CURRENTLY RESTING ON HER RIGHT SIDE, RESPIRATIONS APPEAR EVEN.
--- NOTE | 2023-01-13 04:23 | NUR ---
PER FAMILY REQUEST FAMILY REQUEST THAT PT NOT BE DISTURBED AT THIS TIME. PT SLEEPING PEACEFULLY. FAMILY WILL NOTIFY WHEN PT AWAKES.
--- NOTE | 2023-01-13 07:39 | NUR ---
SHIFT SUMMARY COMFORT CARE W/ PALLIATIVE CARE SERVICES. FAMILY AT BEDSIDE T/O SHIFT. PT MEDICATED W/ ATIVAN 3X THIS SHIFT. PT TURNED/ CHANGED SCHEDULED W/ FAMILY APPROVAL. PT VISIBLY UNCOMFORTABLE DURING CHANGE/ TURNING. PT UNABLE TO COMMUNICATE AND ONLY RESPONDS TO PAIN. BROWN IN PLACE DRAINING DARK SIDNEY URINE, INCONT OF LOOSE STOOL. MEPILEX TO COCCYX AND OPEN AREAS NOTED TO BUTTOCK. R ARM VISIBLE SWOLLEN AND PAINFUL TO PT, SHE WILL GRAB AT IT DURING CHANGE/ TURN. FENTANYL ADMINISTERED W/ NO RELIEF. ATIVAN HAS BEEN MORE EFFECTIVE FOR COMFORT. FAMILY TO NOTIFY WHEN PT BECOMES ANXIOUS AND NEED FOR MEDS.
--- NOTE | 2023-01-13 13:27 | NUR ---
FAMILY EXPRESSED CONCERNS ABOUT PATIENT SEEMING SEDATED FROM MEDICATIONS, EDUCATED FAMILY ON MEDICATIONS AND TALKED WITH THEM TO ADJUST PLAN OF CARE TO KEEP PATIENT COMFORTABLE BUT AVOID SEDATION. ALSO EDUCATED FAMILY ON WHAT TO EXPECT PATIENT TRANSITIONS. FAMILY UNDERSTANDABLE AND AGREEABLE TO PLAN.
--- NOTE | 2023-01-13 15:53 | NUR ---
Met with family at bedside. Micah and pt's sister are present. Pt is no longer waking up, even with turning. She does not appear to be in any pain or distress. Had discussion with pharmacy regarding pt's allergy to Codeine, they gave recommendations, which I then discussed with Dr. Sanches. PRN medications ordered for pain. Family remark on how "wonderful" staff has been to the patient as well as family.
--- NOTE | 2023-01-13 17:12 | NUR ---
SHIFT SUMMARY MEDICATED TODAY PER EMAR. PT HAS BEEN RESTING COMFORTABLY WITH NO SIGNS OF AIR HUNGER SINCE EARLY AFTERNOON. FAMILY PRESENT AT BEDSIDE, CALLING IF PATIENT SHOWS SINCE OF ANXIETY OR AGITATION. THEY REPORT SHE HAS APPEARED COMFORTABLE SINCE NOON. REPOSITIONED FREQUENTLY FAMILY AND PT TOLERATED. FOAM HEEL PROTECTORS PLACED FOR COMFORT AND TO PREVENT BREAKDOWN. MEPILEX TO COCCYX REMAINS CDI. BROWN PATENT AND DRAINING, DARK YELLOW/BROWN URINE.
--- NOTE | 2023-01-13 17:44 | NUR ---
FAMILY CALLED THIS RN INTO ROOM THEY FEEL BREATHING IS SHALLOWER AND MORE RAPID. THEY ASKED IF THEY SHOULD CALL FAMILY BACK IN. THIS RN AGREED THAT BREATHING IS SHALLOWER BUT STILL APPEARS UNLABORED. THEY HAVE CALLED FAMILY BACK IN TO SEE PATIENT. FAMILY PRESENT AT BEDSIDE TALKING TO PATIENT.
--- NOTE | 2023-01-14 06:32 | NUR ---
SHIFT SUMMARY COMFORT CARE, FAMILY AT BEDSIDE ALL NIGHT. PT BECOMING LESS RESPONSIVE AND NO LONGER RESPONDS TO PAIN. PT TURNED/ CHANGED REGULARLY OR FAMILY REQUESTS. FAMILY CALLS/ INFORMS OF PT AGGITATION/ ANXIETY AND MEDICATION REQUESTS. MEDICATED X1 THIS SHIFT FOR PAIN AND ANXIETY. FAMILY CONTINUES TO THANK STAFF FOR SUPPORT AND CARE PROVIDED TO PT AND FAMILY.
--- NOTE | 2023-01-14 07:04 | NUR ---
PT APPEARS TO BE RESTING COMFORTABLY AT THIS TIME WITH HER AT THE BEDSIDE.
[2023-01-14 09:10] LABS: HSV-1 DNA Positive (Negative); HSV-2 DNA Negative (Negative)
--- NOTE | 2023-01-14 09:29 | NUR ---
PT PASSED AT 0852. PT'S FAMILY WAS PRESENT IN ROOM WHEN PT PASSED. ORQUIDEA CLARK, ALISTAIR STEWART AND KAT MAX AWARE.
--- NOTE | 2023-01-14 09:59 | NUR ---
Spiritual care visit conducted. Minutes after patient's TOD (0852), spiritual care is requested. Patient's spoue, Micah and her 2 sisters are present and grieving appropriately. We talk about the events of the evening, the peaceful and the request for prayer. I gladly supply a prayer and then offer grief support and conduct a life review of patient from the perspective of each one present. I also extend an offer for continued bereavement support to Micah after all the family leave the area back to their own homes. Micah and the sisters showed signs of being comforted by the barber shop operator services provided,
--- NOTE | 2023-01-14 10:40 | NUR ---
Pt peacefully this morning with and sisters by her side. She is being taken to [facility]. Her was concerned about her wedding rings and was unable to take them off. I was able to carefully remove them and return them to him. All 3 family members report deep gratitude for the care and compassion by hospital staff, towards pt as well as to them.
--- NOTE | 2023-01-14 11:50 | NUR ---
MIKE FROM [facility] ARRIVED AND TOOK PT AT APPROXIMATELY 1140. PT'S BELONGINGS WERE SENT HOME WITH HER FAMILY. POSTMORTEM CARE WAS PROVIDED BY HOMER CRABTREE AND DIRK RN.
== END 2023-01-14 11:45 | DRG 385 ==
LOC: ER 05:40 → PCU 05:41 → MEDS 12-27 13:43 → ICUE 12-27 13:43 → PCU 12-27 13:43 → MEDS 12-29 17:17 → ICUE 01-10 10:49 → PCU 01-12 10:34 → SURS 01-12 15:33
PROVIDERS: Emergency Medicine; Family Medicine; Hospitalist; Internal Medicine; Internal Medicine Gastroenterology; ADMIT Family Medicine
PROC: 30233N1 Transfusion of Nonautologous Red Blood Cells into Peripheral Vein, Percutaneous Approach (ICD-10-PCS; 2022-12-28)
PROC: 0DB68ZX Excision of Stomach, Via Natural or Artificial Opening Endoscopic, Diagnostic (ICD-10-PCS; 2023-01-09)
PROC: 0DB58ZX Excision of Esophagus, Via Natural or Artificial Opening Endoscopic, Diagnostic (ICD-10-PCS; 2023-01-09)
PROC: 0DB98ZX Excision of Duodenum, Via Natural or Artificial Opening Endoscopic, Diagnostic (ICD-10-PCS; principal; 2023-01-09 14:30)
PROC: 0DH67UZ Insertion of Feeding Device into Stomach, Via Natural or Artificial Opening (ICD-10-PCS; 2023-01-10)
PROC: 3E0G76Z Introduction of Nutritional Substance into Upper GI, Via Natural or Artificial Opening (ICD-10-PCS; 2023-01-10)
PROC: 06HY33Z Insertion of Infusion Device into Lower Vein, Percutaneous Approach (ICD-10-PCS; 2023-01-10)
PROC: 0T9B70Z Drainage of Bladder with Drainage Device, Via Natural or Artificial Opening (ICD-10-PCS; 2023-01-11)
DX: K51.90 Ulcerative colitis, unspecified, without complications (principal); E43 Unspecified severe protein-calorie malnutrition; K22.11 Ulcer of esophagus with bleeding; E87.0 Hyperosmolality and hypernatremia; D62 Acute posthemorrhagic anemia; D84.9 Immunodeficiency, unspecified; B25.8 Other cytomegaloviral diseases; I82.A11 Acute embolism and thrombosis of right axillary vein; I82.B11 Acute embolism and thrombosis of right subclavian vein; Z68.1 Body mass index [BMI] 19.9 or less, adult; B37.81 Candidal esophagitis; R78.81 Bacteremia; Z66 Do not resuscitate; Z51.5 Encounter for palliative care; B96.1 Klebsiella pneumoniae [K. pneumoniae] as the cause of diseases classified elsewhere; E86.1 Hypovolemia; B96.20 Unspecified Escherichia coli [E. coli] as the cause of diseases classified elsewhere; I48.0 Paroxysmal atrial fibrillation; B95.5 Unspecified streptococcus as the cause of diseases classified elsewhere; B96.89 Other specified bacterial agents as the cause of diseases classified elsewhere; M81.0 Age-related osteoporosis without current pathological fracture; E78.5 Hyperlipidemia, unspecified; I25.10 Atherosclerotic heart disease of native coronary artery without angina pectoris; I95.9 Hypotension, unspecified; M19.90 Unspecified osteoarthritis, unspecified site; E87.6 Hypokalemia; G60.9 Hereditary and idiopathic neuropathy, unspecified; K29.70 Gastritis, unspecified, without bleeding; B96.81 Helicobacter pylori [H. pylori] as the cause of diseases classified elsewhere; E88.09 Other disorders of plasma-protein metabolism, not elsewhere classified; B00.1 Herpesviral vesicular dermatitis; F10.90 Alcohol use, unspecified, uncomplicated; R33.9 Retention of urine, unspecified; R62.7 Adult failure to thrive; E83.39 Other disorders of phosphorus metabolism; E83.42 Hypomagnesemia; N32.89 Other specified disorders of bladder; R25.1 Tremor, unspecified; K31.89 Other diseases of stomach and duodenum; D69.6 Thrombocytopenia, unspecified; R13.12 Dysphagia, oropharyngeal phase; Z88.5 Allergy status to narcotic agent; Z88.8 Allergy status to other drugs, medicaments and biological substances; Z79.811 Long term (current) use of aromatase inhibitors; Z79.52 Long term (current) use of systemic steroids; Z79.899 Other long term (current) drug therapy; Z87.01 Personal history of pneumonia (recurrent); Z90.89 Acquired absence of other organs; Z98.890 Other specified postprocedural states; Z90.721 Acquired absence of ovaries, unilateral; Z86.16 Personal history of COVID-19; Z83.79 Family history of other diseases of the digestive system
CPT/HCPCS: 36415; 36430; 36569; 51702; 71046; 74178; 80048; 80053; 80069; 80076; 81001; 81003; 82306; 82330; 82728; 82947; 83540; 83550; 83605; 83735; 83880; 83993; 84100; 84478; 85014; 85018; 85025; 85651; 86140; 86141; 86850; 86900; 86901; 86923; 87040; 87077; 87086; 87103; 87186; 87496; 87507; 87529; 88305; 88312; 88342; 92610; 93005; 93010; 93306; 93971; 96360; 96361; 96365; 96366; 96367; 96368; 96375; 96376; 97110; 97110-CQ; 97116; 97162; 97166; 97530; 99285-25; A9270; C1751; C9113; G0378; J0133; J1170; J1450; J1570; J2001; J2060; J2405; J2543; J2704; J2916; J2920; J2930; J3010; J3380; J3411; J3475; J3480; J7030; J7050; J7060; J7070; J7120; P9016; P9047; Q9967